=== PATIENT | female | born 1930 | race Caucasian/White ===

== ENCOUNTER → 2017-11-26 | Outpatient (CLI) | payer OTHER ==
[~2017-11-26] MED LIST: OPTIRAY 320 IV PRN
[2017-11-26 14:27] LABS: BLOOD UREA NITROGEN 22 mg/dl (7-18)
--- NOTE | 2017-11-26 14:50 | DIAGNOSTIC IMAGING REPORT ---
CT (CHEST) THORAX WITH CLINICAL HISTORY: 86 years-old Female presenting with J44.9 COPD. TECHNIQUE: Multidetector CT imaging of the chest was performed after the administration of intravenous contrast. IV contrast: 81 mL of Optiray 320. A dose lowering technique was used consistent with the principles of ALARA (as low as reasonably achievable). COMPARISON: None. CT DOSE (mGy.cm): The estimated cumulative dose is 333.61 mGycm. FINDINGS: Improvement Lead topogram: Unremarkable. On soft tissue windows, normal thyroid and thoracic inlet. Enlarged mediastinal lymph nodes. And index node in the sacral region measures 12 mm in the short axis (series 4 image 117). Lymph nodes noted in the precarinal, prevascular, and aortopulmonary window regions. Additionally, right hilar lymphadenopathy evident. Atherosclerosis of the aorta an the major branch vessels. Mild multichamber enlargement of the heart. Coronary artery calcification. No pericardial or pleural effusion. Upper abdomen normal. On lung windows, moderate apical predominant emphysema. Dependent changes likely atelectasis. Solid 4 mm pulmonary nodule at the right apex (series 4 image 81). Airways patent. No pneumothorax. On bone windows, osteopenia. IMPRESSION: 1. Mediastinal and right hilar lymphadenopathy. Although this may be reactive, this is suspicious based on size criteria. Further evaluation with bronchoscopic biopsy and/or PET CT to be considered as clinically appropriate. 2. 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 3. 4 mm solid right apical nodule. Follow-up per [employer] Society 2017 recommendations below. The report will be called/faxed according to standard departmental protocol. Please refer to below summary of Fleischner Society 2017 recommendations for follow-up of incidental CT nodules (H Trena et al. Guidelines for management of incidental pulmonary nodules detected on CT images: From the Fleischner Society 2017. Radiology 2017; 284: 228-243.) SOLID NODULES Single nodule; size < 6 mm * Low risk patients: No routine follow-up * High risk patients: Optional CT at 12 months Single nodule; size 6-8 mm * Low risk patients: CT at 6-12 months, then consider CT at 18-24 months * High risk patients: CT at 6-12 months, then at 18-24 months Single nodule; size > 8 mm * Either low or high risk patients: Considered CT at 3 months, PET/CT, or tissue sampling Multiple nodules; size < 6 mm * Low risk patients: No routine follow up * High risk patients: Optional CT at 12 months Multiple nodules; size 6-8 mm * Low risk patients: CT at 3-6 months, then consider CT at 18-24 months * High risk patients: CT at 3-6 months, then at 18-24 months Multiple nodules; size > 8 mm * Low risk patients: CT at 3-6 months, then consider at 18-24 months * High risk patients: CT at 3-6 months, then at 18-24 months SUBSOLID NODULES Single ground-glass nodule * Nodule size < 6 mm: No routine follow-up * Nodule size > or = 6 mm: CT at 6-12 months to confirm persistence, then CT every 2 years until 5 years Single part-solid nodule * Nodule size < 6 mm: No routine follow-up * Nodules size > or = 6 mm: CT at 3-6 months to confirm persistence. If unchanged and solid component remains < 6 mm, annual CT should be performed for 5 years Multiple nodules * Nodule size < 6 mm: CT at 3-6 months. If stable, consider CT at 2 and 4 years. * Nodules size > or = 6 mm: CT at 3-6 months. Subsequent management based on the most suspicious nodule(s) NOTE: 1) These guidelines apply to incidental nodules. These guidelines do NOT apply to patients younger than 35 years, immunocompromised patients, or patients with cancer. 2) Risk categories: * Low risk patients: Minimal or absent history of smoking and/or other known risk factors * High risk patients: History of smoking, exposure to other carcinogens, emphysema, fibrosis, upper lobe location, family history of lung cancer, etc. 3) If a nodule up to 8 mm is partly solid or is ground glass, further follow-up is required after 24 months to exclude possible slow growing adenocarcinoma. Electronically signed by: Mukesh Brunner M.D. 11/26/2017 2:48 PM Dictated Date/Time: 11/26/2017 2:40 PM
== END | disposition home or self-care (01) ==
LOC: C.CTS 13:46
PROVIDERS: ATTEND Internal Medicine Pulmonary Disease
DX: J44.9 Chronic obstructive pulmonary disease, unspecified (principal); R59.0 Localized enlarged lymph nodes; R91.1 Solitary pulmonary nodule

== ENCOUNTER 2021-05-09 07:50 | Inpatient (IN) ==
[2021-05-09] MEDS ORDERED: fentaNYL citrate 100 MCG/2 ML VIAL IV STA (07:57)
--- NOTE | 2021-05-09 08:01 | Emergency Department Note ---
Impression & Plan COPD exacerbation, Back pain, Ambulatory dysfunction ED Provider Note Name: PRASHANTH TRUJILLO Age: 89 Sex: F Arrives Via: Ambulance Informant: Patient, daughter ED Provider: Delon Davila MD Chief Complaint: back pain Impression: As Per Impressions above Medical Decision Making: Pleasant 89 yr old female with extensive PMH arrives for 2nd ED visit in last few days with worsening low back pain radiating down legs without improvement on baclofen as outpatient. She is quite weak with diffusely junkly lung sounds. CT lumbar/pelvis without evidence of acute fracture. Labs consistent with chronic disease. UA without clear infection. CXR mild congestions though I believe this is more consistent with copd exacerbation. Suspect worsening weakness/ambulatory disfuction worsening and respiratory status worsened. She is far too weak and deconditioned to go home and she/daughter on board with hospitalist kat. Held off on steroids/abx until hospitalist goldenal as patient stable. Prior Medical Record and Triage/Nursing Notes reviewed by Me Additional history obtained from chart, daughter, ems Differentials:Infection, dehydration, metabolic abnormality, hypo/hyperglycemia, electrolyte disturbance, anemia, hypoxia, cardiac sources, intracerebral event, toxicologic, neurologic, as well as other pathologies. Vital Signs: reviewed and remarkable for no significant abnormalities Interventions: See Below Labs:Reviewed and remarkable for no significant abnormalities Imaging:See Below Consults:Kedar mattsonist Plan: Disposition:Hospitalization. Condition: Good History of Present Illness:89-year-old female arrives for evaluation of low back pain. Patient notes she started having low back pain about 1 week ago. It has begun radiating to bilateral buttocks across her lower back. Primarily it radiates down her left buttock. She states it is too much pain to even walk at home. She lives with her grandson. Patient notes she is able to get up out of bed to get to the bathroom but is severely difficult for her. She does note some loss of bladder control but states this is not new for her. Patient denies any specific weakness of the legs but states it is just so painful to use them. She denies any falls, trauma, history of similar. She has had no fevers, chills, shortness of breath, chest pain, runny nose, headaches, abdominal pain, leg swelling, rashes, bleeding, bruising or other symptoms. She has had no diarrhea. She does note some urinary burning the last few days. She was seen at [facility] several days ago and states she was started on baclofen for her pain. She is unsure what exact work-up was done but states she was not given any answers as to what was going on. Patient states she cannot live at home like this due to inability to ambulate due to the amount of pain. ROS: See above HPI for pertinent positives & negatives. A total of 10 systems reviewed and were otherwise negative. Past Medical History:COPD, hypertension Past Surgical History:D&C, hysterectomy Family History:Denies past family medical history Social History:Patient is lives with her grandson and smokes 3 cigarettes a day Home Medications:See Below Allergies:Penicillin Vitals:Blood Pressure: 121/68, Pulse 76, RR 16, T 36.7C, O2 94% on RA Physical Exam: GENERAL: Patient is tired/uncomfortable appearing and in moderate distress. EYES: No scleral icterus, unremarkable pupils. ENT: Mucous membranes moist, no nasal congestion. NECK: No masses appreciated, nomeningismus, trachea is midline. RESPIRATORY: Junky lung sounds with mild wheezing. Mild dyspnea. Equal bilaterally. CARDIOVASCULAR: Regular rate and rhythm.No murmurs, rubs, gallops appreciated. GASTROINTESTINAL: Abdomen soft, non-tender, no peritonitis.Bowel sounds positive.No masses appreciated. BACK: No midline tenderness, no CVA tenderness EXTREMITIES: Normal motion all extremities, no cyanosis, no edema. NEUROLOGIC: Alert and oriented, no acute motor or sensory deficits, no focal weakness, cranial nerves grossly intact. SKIN: No rash, no jaundice, no diaphoresis. 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-89 ml/min COPD (chronic obstructive pulmonary disease) Essential tremor YUMIKO (generalized anxiety disorder) Hypertension Osteoporosis Raspy voice BASELINE PER PATIENT; DENIES ANY RECENT OR CURRENT ILLNESS Seasonal allergies Surgical History H/O: hysterectomy History of D&C History of surgery on wrist removal wrist ganglion Hx of bilateral cataract extraction Family History Daughter Family hx of colon cancer Social History Smoking Status: Current every day smoker Tobacco Type: Cigarettes Cigarettes Per Day: 6 CIGS/DAY; Second Hand Exposure: No; Do You Dip or Chew Tobacco: No; Tobacco Cessation Education Requested by Patient: No Hx Alcohol Use: No Hx Substance Use: No Preferred Language: Indonesian Communication Ability: Effective Mechatronics Technician Required: No Beliefs That Will Affect Care: None Current Living Situation: Family Current Living Situation Comment: Grandson lives with patient Other Information That Helps Us Care for You: No Feels Safe at Home: Yes Safety Concerns: Feels Safe At This Time Assistive Devices: Denture - Upper, Denture - Lower and Walker Allergies Allergies Allergy/AdvReac Type Severity Reaction Status Date / Time Penicillins Allergy Unknown SWELLING Verified 02/15/18 08:10 AND ITCHY Home Meds Home Medications Medication Instructions Recorded Confirmed metoprolol tartrate 50 mg tablet 50 mg PO BID 02/04/18 05/09/21 albuterol sulfate 2.5 mg INHALATION Q4H PRN 05/09/21 05/09/21 calcium carb-ergocalciferol (vit 1 tab PO DAILY 05/09/21 05/09/21 D2) 600 mg calcium-200 unit tablet fluticasone propionate 50 2 spray INTRANASAL DAILY PRN 05/09/21 05/09/21 mcg/actuation nasal spray,suspension hydralazine 10 mg tablet 10 mg PO TID 05/09/21 05/09/21 mometasone-formoterol HFA 200 2 puff INHALATION BID 05/09/21 05/09/21 mcg-5 mcg/actuation aerosol inhaler (Dulera) prednisone 5 mg tablet 5 mg PO QPM 05/09/21 05/09/21 vitamin A-vitamin C-vit E-min 1 tab PO DAILY 05/09/21 05/09/21 tablet Results & Data (ED) Vital Signs Vital Signs - 24 hr 05/09/21 08:49 05/09/21 08:51 05/09/21 09:01 Temperature 36.8 C Temperature Source Oral Pulse Rate 79 Pulse Rate [Finger] Respiratory Rate 22 Blood Pressure 226/152 H Blood Pressure [Left Arm] Blood Pressure Mean 176 Blood Pressure Mean [Left Arm] Pulse Oximetry 84 L 91 97 Oxygen Delivery Method Room Air Room Air Nasal Cannula Oxygen Flow Rate 2 Sepsis Recent Fever Within 48 Hours No Sepsis New/Unexplained Change in Mental Status N/A Sepsis Action Taken by Nursing No Action Required 05/09/21 09:14 Temperature Temperature Source Pulse Rate Pulse Rate [Finger] 73 Respiratory Rate 18 Blood Pressure Blood Pressure [Left Arm] 142/81 H Blood Pressure Mean Blood Pressure Mean [Left Arm] 101 Pulse Oximetry 97 Oxygen Delivery Method Nasal Cannula Oxygen Flow Rate 1 Sepsis Recent Fever Within 48 Hours Sepsis New/Unexplained Change in Mental Status Sepsis Action Taken by Nursing Laboratory Data Result diagrams: 05/11/21 06:20 05/11/21 06:20 Lab Results 05/09/21 05/09/21 05/09/21 Range/Units 08:08 08:08 08:15 WBC 8.00 (4.8-10.8) K/uL RBC 4.90 (4.2-5.4) M/uL Hgb 15.9 (12.0-16.0) g/dL Hct 48.0 H (37-47) % MCV 98.0 (80-100) fL MCH 32.4 (25-34) pg MCHC 33.1 (32-36) g/dL RDW Std Deviation 50.2 H (36.4-46.3) fL RDW Coeff of Alesia 14.1 (11.5-14.5) % Plt Count 328 (130-400) K/uL MPV 10.1 (7.4-10.4) fL Immature Gran % (Auto) 0.1 % Neut % (Auto) 71.5 % Lymph % (Auto) 19.6 % [place] % (Auto) 6.5 % Eos % (Auto) 1.9 % Baso % (Auto) 0.4 % Neut # (Auto) 5.72 (1.4-6.5) K/uL Lymph # (Auto) 1.57 (1.2-3.4) K/uL [place] # (Auto) 0.52 (0.11-0.59) K/uL Eos # (Auto) 0.15 (0-0.5) K/uL Baso # (Auto) 0.03 (0-0.2) K/uL Immature Gran # (Auto) 0.01 (0.00-0.02) K/uL Sodium (136-145) mmol/L Potassium (3.5-5.1) mmol/L Chloride (98-107) mmol/L Carbon Dioxide (21-32) mmol/L Anion Gap (3-11) BUN (6-23) mg/dl Creatinine (0.6-1.2) mg/dl Est Cr Clr Drug Dosing Est GFR ( Amer) ml/min Est GFR (Non-Af Amer) ml/min BUN/Creatinine Ratio (10-20) Glucose (70-99(Fasting)) mg/dl Calcium (8.5-10.1) mg/dl Magnesium (1.7-2.4) mg/dl Urine Color Yellow Urine Appearance Clear (Clear) Urine pH 7.5 (4.5-7.5) Ur Specific [place] 1.012 (1.000-1.030) Urine Protein 1+ H (Negative) Urine Glucose (UA) Negative (Negative) Urine Ketones 1+ H (Negative) Urine Blood Trace H (Negative) Urine Nitrite Negative (Negative) Urine Bilirubin Negative (Negative) Urine Urobilinogen Negative (Negative) Ur Leukocyte Esterase Negative (Negative) Urine WBC (Auto) 1-5 (0-5) /hpf Urine RBC (Auto) 5-10 H (0-4) /hpf U Hyaline Cast (Auto) 1-5 (0-5) /lpf U Epithel Cells (Auto) 10-20 H (0-5) /lpf Urine Bacteria (Auto) Negative (Negative) SARS-CoV-2, RNA, NAAT NEGATIVE (NEGATIVE) 05/09/21 Range/Units 08:15 WBC (4.8-10.8) K/uL RBC (4.2-5.4) M/uL Hgb (12.0-16.0) g/dL Hct (37-47) % MCV (80-100) fL MCH (25-34) pg MCHC (32-36) g/dL RDW Std Deviation (36.4-46.3) fL RDW Coeff of Alesia (11.5-14.5) % Plt Count (130-400) K/uL MPV (7.4-10.4) fL Immature Gran % (Auto) % Neut % (Auto) % Lymph % (Auto) % [place] % (Auto) % Eos % (Auto) % Baso % (Auto) % Neut # (Auto) (1.4-6.5) K/uL Lymph # (Auto) (1.2-3.4) K/uL [place] # (Auto) (0.11-0.59) K/uL Eos # (Auto) (0-0.5) K/uL Baso # (Auto) (0-0.2) K/uL Immature Gran # (Auto) (0.00-0.02) K/uL Sodium 140 (136-145) mmol/L Potassium 3.5 (3.5-5.1) mmol/L Chloride 100 (98-107) mmol/L Carbon Dioxide 29 (21-32) mmol/L Anion Gap 11 (3-11) BUN 18 (6-23) mg/dl Creatinine 0.77 (0.6-1.2) mg/dl Est Cr Clr Drug Dosing Not Reportable Est GFR ( Amer) 79.3 ml/min Est GFR (Non-Af Amer) 68.5 ml/min BUN/Creatinine Ratio 23.4 H (10-20) Glucose 116 H (70-99(Fasting)) mg/dl Calcium 9.7 (8.5-10.1) mg/dl Magnesium 2.0 (1.7-2.4) mg/dl Urine Color Urine Appearance (Clear) Urine pH (4.5-7.5) Ur Specific [place] (1.000-1.030) Urine Protein (Negative) Urine Glucose (UA) (Negative) Urine Ketones (Negative) Urine Blood (Negative) Urine Nitrite (Negative) Urine Bilirubin (Negative) Urine Urobilinogen (Negative) Ur Leukocyte Esterase (Negative) Urine WBC (Auto) (0-5) /hpf Urine RBC (Auto) (0-4) /hpf U Hyaline Cast (Auto) (0-5) /lpf U Epithel Cells (Auto) (0-5) /lpf Urine Bacteria (Auto) (Negative) SARS-CoV-2, RNA, NAAT (NEGATIVE) Administered Medications Acetaminophen (Acetaminophen 325 Mg Tab) 650 mg PO Q6H [facility] Stop: 06/08/21 11:14 Last Admin: 05/11/21 05:53 Dose: 650 mg Documented by: [id number] Admin: 05/10/21 23:35 Dose: 650 mg Documented by: [id number] Admin: 05/10/21 18:21 Dose: 650 mg Documented by: [id number] Admin: 05/10/21 12:31 Dose: 650 mg Documented by: [id number] Admin: 05/10/21 05:17 Dose: 650 mg Documented by: [id number] Admin: 05/09/21 23:59 Dose: 650 mg Documented by: [id number] Admin: 05/09/21 17:11 Dose: 650 mg Documented by: [id number] Admin: 05/09/21 13:11 Dose: 650 mg Documented by: [id number] Azithromycin (Azithromycin 250 Mg Tab) 500 mg PO DAILY [facility] Stop: 05/12/21 09:01 Last Admin: 05/11/21 08:53 Dose: 500 mg Documented by: [id number] Admin: 05/10/21 14:19 Dose: 500 mg Documented by: [id number] Fluticasone/Vilanterol (Fluticasone/Vilanterol 100/25mcg 14 Puffs/Inhaler) 1 puffs INH Q24H [facility]; Protocol Stop: 06/08/21 20:59 Last Admin: 05/10/21 22:21 Dose: 1 puffs Documented by: [id number] Admin: 05/09/21 20:01 Dose: 1 puffs Documented by: [id number] Hydralazine HCl (Hydralazine 10 Mg Tab) 10 mg PO TID [facility] Stop: 06/08/21 13:59 Last Admin: 05/11/21 08:54 Dose: 10 mg Documented by: [id number] Admin: 05/10/21 21:06 Dose: Not Given Documented by: [id number] Admin: 05/10/21 14:20 Dose: 10 mg Documented by: [id number] Admin: 05/10/21 09:33 Dose: 10 mg Documented by: [id number] Admin: 05/09/21 20:03 Dose: 10 mg Documented by: [id number] Admin: 05/09/21 13:04 Dose: 10 mg Documented by: [id number] Ceftriaxone Sodium 1,000 mg/ (Dextrose) 50 mls @ 100 mls/hr IV Q24H [facility]; Protocol Stop: 05/14/21 12:29 Last Infusion: 05/10/21 13:05 Dose: 0 mls/hr Documented by: [id number] Admin: 05/10/21 12:32 Dose: 100 mls/hr Documented by: [id number] Infusion: 05/09/21 13:12 Dose: 0 mls/hr Documented by: [id number] Admin: 05/09/21 12:29 Dose: 100 mls/hr Documented by: [id number] Heparin Sodium/Dextrose (Heparin Sodium/Dextrose) 25,000 units in 500 mls @ 15 mls/hr IV .Q24H [facility]; Protocol Stop: 06/09/21 22:44 Last Titration: 05/11/21 07:25 Dose: 750 units/hr, 15 mls/hr Documented by: [id number] Cosigned by: [id number] Admin: 05/10/21 23:29 Dose: 750 units/hr, 15 mls/hr Documented by: [id number] Cosigned by: [id number] Ipratropium Rhodell (Ipratropium Rhodell Neb Soln 0.02% 2.5 Ml Vial) 0.5 mg INH Q6R [facility] Stop: 06/10/21 00:59 Last Admin: 05/11/21 07:52 Dose: Not Given Documented by: [id number] Admin: 05/11/21 00:16 Dose: 0.5 mg Documented by: [id number] Levalbuterol HCl (Levalbuterol 1.25mg/0.5ml Neb) 1.25 mg INH Q6R [facility] Stop: 06/10/21 00:59 Last Admin: 05/11/21 07:52 Dose: Not Given Documented by: [id number] Admin: 05/11/21 00:16 Dose: 1.25 mg Documented by: [id number] Lidocaine (Lidocaine 5% 1 Patch) 1 patch TD QAM [facility] Stop: 06/08/21 11:14 Last Admin: 05/11/21 08:55 Dose: 1 patch Documented by: [id number] Admin: 05/10/21 09:36 Dose: 1 patch Documented by: [id number] Admin: 05/09/21 13:05 Dose: 1 patch Documented by: [id number] Metoprolol Tartrate (Metoprolol Tartrate 50 Mg Tab) 50 mg PO BID [facility] Stop: 06/08/21 11:48 Last Admin: 05/11/21 08:55 Dose: 50 mg Documented by: [id number] Admin: 05/10/21 21:06 Dose: 50 mg Documented by: [id number] Admin: 05/10/21 09:34 Dose: 50 mg Documented by: [id number] Admin: 05/09/21 20:02 Dose: 50 mg Documented by: [id number] Admin: 05/09/21 13:05 Dose: 50 mg Documented by: [id number] Miscellaneous (Remove Lidoderm Patch) 1 ea N/A DAILY@2100 [facility] Stop: 06/08/21 20:59 Last Admin: 05/10/21 21:06 Dose: 1 ea Documented by: [id number] Admin: 05/09/21 20:04 Dose: 1 ea Documented by: [id number] Prednisone (Prednisone 5 Mg Tab) 5 mg PO QPM [facility] Stop: 06/08/21 20:59 Last Admin: 05/09/21 20:02 Dose: 5 mg Documented by: [id number] Prednisone (Prednisone 20 Mg Tab) 40 mg PO DAILY [facility] Stop: 05/15/21 11:14 Last Admin: 05/11/21 08:56 Dose: 40 mg Documented by: [id number] Admin: 05/10/21 14:19 Dose: 40 mg Documented by: [id number] Discontinued Medications Albuterol (Albut/Ipratrop 3mg/0.5mg Neb 3 Ml Vial) 3 ml NEB QIDR [facility]; Protocol Stop: 06/08/21 14:59 Last Admin: 05/10/21 19:51 Dose: 3 ml Documented by: [id number] Admin: 05/10/21 14:32 Dose: 3 ml Documented by: [id number] Admin: 05/10/21 10:56 Dose: 3 ml Documented by: [id number] Admin: 05/10/21 07:40 Dose: 3 ml Documented by: [id number] Admin: 05/09/21 19:24 Dose: 3 ml Documented by: [id number] Admin: 05/09/21 15:57 Dose: 3 ml Documented by: [id number] Fentanyl Citrate (Fentanyl Citrate 100 Mcg/2 Ml Vial) 25 mcg IV NOW STA Stop: 05/09/21 07:58 Last Admin: 05/09/21 08:10 Dose: 25 mcg Documented by: [id number] Heparin Sodium (Porcine) (Heparin Sod 5,000 Unit/0.5 Ml Vial) 5,000 units SQ Q12 [facility] Stop: 06/08/21 20:59 Last Admin: 05/10/21 21:00 Dose: 5,000 units Documented by: [id number] Admin: 05/10/21 09:34 Dose: 5,000 units Documented by: [id number] Admin: 05/09/21 20:03 Dose: 5,000 units Documented by: [id number] Heparin Sodium/Dextrose (Heparin Iv Adult Wt-Based Low-Dose *No* Bolus Protocol) 1 ea IV Q30M [facility]; Protocol Stop: 05/10/21 22:29 Last Admin: 05/10/21 23:29 Dose: 1 ea Documented by: [id number] Sodium Chloride (Nss 1000ml) 1,000 mls @ 80 mls/hr IV .[id number] [facility] Stop: 05/10/21 23:29 Last Infusion: 05/10/21 23:33 Dose: 0 mls/hr Documented by: [id number] Admin: 05/10/21 11:30 Dose: 80 mls/hr Documented by: [id number] Heparin Sodium/Dextrose (Heparin Sodium/Dextrose) 25,000 units in 500 mls @ 0.02 mls/hr IV .Q24H [facility]; Protocol Stop: 06/10/21 00:21 Last Admin: 05/11/21 00:49 Dose: Not Given Documented by: [id number] Labetalol HCl (Labetalol Hcl Iv 5 Mg/Ml 20ml) 10 mg IV NOW STA Stop: 05/09/21 08:21 Last Admin: 05/09/21 08:37 Dose: 10 mg Documented by: [id number] Cosigned by: [id number] Ondansetron HCl (Ondansetron Inj 2 Mg/Ml 2 Ml Vial) 4 mg IV NOW STA Stop: 05/09/21 08:35 Last Admin: 05/09/21 08:37 Dose: 4 mg Documented by: [id number] Imaging Data Radiologist's Impression: Lumbar Spine CT 05/09/21 07:57 CT lumbar spine wo con HISTORY: 89 years-old Female low back pain in to left buttock acute low back pain without reported trauma COMPARISON: Chest CT 11/26/2017 TECHNIQUE: Multiple axial CT images of the lumbar spine were obtained without the use of IV contrast. A dose lowering technique was used consistent with the principals of SERG. FINDINGS: Partially imaged left basilar consolidation. Extensive atherosclerotic vascular disease with abdominal aortic tortuosity. 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 No evidence of aneurysm rupture. No adenopathy. Colonic diverticulosis. Moderate to marked paraspinal muscular atrophy. Demineralized appearance of the bones. Intervertebral disc spaces are generally well preserved with mild L1-L2 and posterior L5-S1 intervertebral disc space na rrowing. Mild multilevel spondylitic spurring with moderate to severe facet arthrosis. No acute fracture, subluxation or endplate erosion. The transverse processes appear intact. No paravertebral edema. Evaluation of the central canal and neuroforamina is better assessed by MRI. L1-L2: No significant central canal or neural foraminal narrowing. L2-L3: Small posterior annular disc bulge with ligamentum flavum thickening causes mild central canal stenosis. The neural foramina appear patent. L3-L4: Posterior annular disc bulge with spondylitic spurring, ligamentum flavum thickening and moderate to severe facet arthrosis. Moderate central canal stenosis with mild left neural foraminal narrowing. The right neuroforamen appears patent. L4-L5: Posterior annular disc bulge with spondylitic spurring, ligamentum flavum thickening with severe facet arthrosis. Moderate central canal stenosis. Bi lateral neuroforamina appear generally patent. L5-S1: Posterior annular disc bulge with spondylitic spurring, ligamentum flavum thickening and severe facet arthrosis. No significant central canal or neural foraminal narrowing. IMPRESSION: 1. No acute fracture or subluxation. 2. 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 Moderate central canal stenosis at L3-L4 and L4-L5. 3. Extensive atherosclerotic vascular disease with abdominal aortic tortuosity. 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 No evidence of aneurysm rupture. ACT 112: Negative or not required by law. The above report was generated using voice recognition software. It may contain grammatical, syntax or spelling errors. Electronically signed by: Chester Pandya M.D. 05/09/2021 8:[address] 05/09/21 08:20 CT OF THE HEAD WITHOUT CONTRAST CLINICAL HISTORY: Headache. COMPARISON STUDY: No previous studies for comparison. CT DOSE: TECHNIQUE: Helical axial images of the head were obtained without IV contrast. Automated exposure control was utilized for the study. A dose lowering technique was utilized adhering to the principles of ALARA. FINDINGS: No acute intracranial hemorrhage, midline shift or mass effect is present. White matter hypodensity suggests small vessel disease. The ventricular system is unremarkable. The basal cisterns are patent. No extra-axial collection s are present. There are no findings to suggest acute dural sinus thrombosis or acute territorial infarct. No significant calvarial abnormalities are present. Visualized portions of the sinuses and mastoid air cells are clear. IMPRESSION: No acute intracranial findings. ACT 112: Negative or not required by law. Electronically signed by: Norbert Richmond M.D. 05/09/2021 8:34 AM Discharge Plan Visit Data Chief Complaint: Back Injury/Pain Stated Complaint: low back pain ED Provider: Delon Davila Discharge Problem: COPD exacerbation, Back pain, Ambulatory dysfunction Patient Disposition: Admitted As Inpatient Discharge Instructions Interventions: ED Discharge Assessment Last Done: 05/09/21 11:17 Discharge Problem: Back pain Qualifiers: Back pain location: low back pain Chronicity: acute Back pain laterality: bilateral Sciatica presence: with sciatica Sciatica laterality: bilateral sciatica Qualified Code(s): M54.42 - Lumbago with sciatica, left side
[2021-05-09] MEDS ORDERED: LABETALOL HCL IV 5 MG/ML 20ML IV STA (08:20)
[2021-05-09 08:22] LABS: Appearance Urine Clear (Clear); Bacteria Urine Automated Negative (Negative); Bilirubin Urine Negative (Negative); Blood Urine Trace (Negative); Color Urine Yellow; Glucose Urine UA Negative (Negative); Ketones Urine 1+ (Negative); Leukocyte Esterase Urine Negative (Negative); Nitrite Urine Negative (Negative); Specific Gravity Urine 1.012 (1.000-1.030); Urobilinogen Urine Negative (Negative); pH Urine 7.5 (4.5-7.5)
[2021-05-09 08:33] LABS: Basophils # (auto) 0.03 K/uL (0-0.2); Basophils % (auto) 0.4 %; Eosinophils # (auto) 0.15 K/uL (0-0.5); Eosinophils % (auto) 1.9 %; Hemoglobin 15.9 g/dL (12.0-16.0); Immature Granulocytes # (auto) 0.01 K/uL (0.00-0.02); Immature Granulocytes % (auto) 0.1 %; Lymphocytes # (auto) 1.57 K/uL (1.2-3.4); Lymphocytes % (auto) 19.6 %; Mean Corpuscular Hemoglobin 32.4 pg (25-34); Mean Corpuscular Hgb Conc 33.1 g/dL (32-36); Mean Platelet Volume 10.1 fL (7.4-10.4); Monocytes # (auto) 0.52 K/uL (0.11-0.59); Monocytes % (auto) 6.5 %; Neutrophils # (auto) 5.72 K/uL (1.4-6.5); Neutrophils % (auto) 71.5 %; Platelet Count 328 K/uL (130-400); RDW Coefficient of Variation 14.1 % (11.5-14.5); RDW Standard Deviation 50.2 fL (36.4-46.3)
[2021-05-09] MEDS ORDERED: ONDANSETRON INJ 2 MG/ML 2 ML VIAL IV STA (08:34)
--- NOTE | 2021-05-09 08:35 | CT Scan Report ---
CT OF THE HEAD WITHOUT CONTRAST CLINICAL HISTORY: Headache. COMPARISON STUDY: No previous studies for comparison. CT DOSE: TECHNIQUE: Helical axial images of the head were obtained without IV contrast. Automated exposure con trol was utilized for the study. A dose lowering technique was utilized adhering to the principles o f ALARA. FINDINGS: No acute intracranial hemorrhage, midline shift or mass effect is present. White matter hyp odensity suggests small vessel disease. The ventricular system is unremarkable. The basal cisterns ar e patent. No extra-axial collections are present. There are no findings to suggest acute dural sinus thrombosis or acute territorial infarct. No significant calvarial abnormalities are present. Visualiz ed portions of the sinuses and mastoid air cells are clear. IMPRESSION: No acute intracranial findings. ACT 112: Negative or not required by law. Electronically signed by: Norbert Richmond M.D. 05/09/2021 8:34 AM
[2021-05-09 08:45] LABS: Protein Urine 1+ (Negative)
--- NOTE | 2021-05-09 08:45 | CT Scan Report ---
CT lumbar spine wo con HISTORY: 89 years-old Female low back pain in to left buttock acute low back pain without reported t rauma COMPARISON: Chest CT 11/26/2017 TECHNIQUE: Multiple axial CT images of the lumbar spine were obtained without the use of IV contrast. A dose lowering technique was used consistent with the principals of SERG. FINDINGS: Partially imaged left basilar consolidation. Extensive atherosclerotic vascular disease with abdomina l aortic tortuosity. There is bilobed fusiform aneurysmal dilation of the abdominal aorta measuring u p to 4.6 cm transversely. No evidence of aneurysm rupture. No adenopathy. Colonic diverticulosis. Mod erate to marked paraspinal muscular atrophy. Demineralized appearance of the bones. Intervertebral disc spaces are generally well preserved with m ild L1-L2 and posterior L5-S1 intervertebral disc space narrowing. Mild multilevel spondylitic spurri ng with moderate to severe facet arthrosis. No acute fracture, subluxation or endplate erosion. The t ransverse processes appear intact. No paravertebral edema. Evaluation of the central canal and neurof oramina is better assessed by MRI. L1-L2: No significant central canal or neural foraminal narrowing. L2-L3: Small posterior annular disc bulge with ligamentum flavum thickening causes mild central canal stenosis. The neural foramina appear patent. L3-L4: Posterior annular disc bulge with spondylitic spurring, ligamentum flavum thickening and moder ate to severe facet arthrosis. Moderate central canal stenosis with mild left neural foraminal narrow ing. The right neuroforamen appears patent. L4-L5: Posterior annular disc bulge with spondylitic spurring, ligamentum flavum thickening with kelly re facet arthrosis. Moderate central canal stenosis. Bilateral neuroforamina appear generally patent. L5-S1: Posterior annular disc bulge with spondylitic spurring, ligamentum flavum thickening and sever e facet arthrosis. No significant central canal or neural foraminal narrowing. IMPRESSION: 1. No acute fracture or subluxation. 2. 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 Moderate central canal stenosis at L3-L4 and L4-L5. 3. Extensive atherosclerotic vascular disease with abdominal aortic tortuosity. Bilobed fusiform aneu rysmal dilation of the infrarenal abdominal aorta measures up to 4.6 cm. No evidence of aneurysm rupt ure. ACT 112: Negative or not required by law. The above report was generated using voice recognition software. It may contain grammatical, syntax o r spelling errors. Electronically signed by: Chester Pandya M.D. 05/09/2021 8:43 AM
[2021-05-09 08:55] LABS: Anion Gap 11 (3-11); BUN Creatinine Ratio 23.4 (10-20); Blood Urea Nitrogen 18 mg/dl (6-23); Calcium 9.7 mg/dl (8.5-10.1); Carbon Dioxide 29 mmol/L (21-32); Chloride 100 mmol/L (98-107); Est GFR (African American) 79.3 ml/min; Est GFR (Non-African American) 68.5 ml/min; Glucose 116 mg/dl (70-99(Fasting)); Potassium 3.5 mmol/L (3.5-5.1); Sodium 140 mmol/L (136-145)
--- NOTE | 2021-05-09 09:52 | XRay Report ---
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 Emphysema with chronic fibrosis. There is a linear 1.2 cm left basilar densities suggestive of atelectasis/scarring. There is an ill-defined 1. 8 cm focal nodular opacity of the right midlung. Chronic pleural thickening of the lung apices. No pn eumothorax, large pleural effusion or overt pulmonary edema. Degenerative changes of the shoulders an d spine. Healed chronic left proximal humeral fracture deformity. IMPRESSION: 1. Emphysema with chronic interstitial coarsening. 2. Ill-defined 1.8 cm nodular opacity of the right midlung appears new from the 2018 comparison. Subt le area of pneumonia, pulmonary nodule or summation density considered. 1-2 month follow-up chest rad iograph recommended. ACT 112: Negative or not required by law. The above report was generated using voice recognition software. It may contain grammatical, syntax o r spelling errors. Electronically signed by: Chester Pandya M.D. 05/09/2021 9:51 AM
--- NOTE | 2021-05-09 10:06 | History & Physical Report ---
Date of Service May 09, 2021 Assessment & Plan (1) Back pain: Plan: Gradually worsening over the past ten days. Likely due to age-related degenerative changes. No specific injury or inciting event. - Admit for pain control, further evaluation - PT/OT evals - pt may need rehab at discharge. She is agreeable to this possibility. - Scheduled acetaminophen, lidocaine patch - PRN oxycodone and cyclobenzaprine - Fall precautions - Check blood cultures (2) Ambulatory dysfunction: Plan: See plan for #1 (3) UTI symptoms: Plan: - Start empiric Rocephin (pt has previously tolerated cephalosporins without issue) - Check urine culture (4) COPD exacerbation: Plan: - DuoNeb QID scheduled - will change to prn once clinical improving - Continue O2 for now - wean as tolerated, not on at baseline - Continue maintenance inhaler and prednisone. May need to increase steroids if not improving with nebs (5) Abnormal chest x-ray: Plan: New ill-defined 1.8 cm density - will need outpatient f/u in 1-2 months (6) Hypertension: Plan: - Continue home meds - metoprolol and hydralazine (7) CKD (chronic kidney disease) stage 2, GFR 60-89 ml/min: Plan: Appears to be at baseline renal function. Avoid NSAIDs. Plan: Pt seen and reviewed with collaborating physician, Dr. Osorio. Plan of care discussed and as outlined above. Code Status: DNR/DNI DVT Prophylaxis: SCDs, subQ heparin Keri Sweet PA-C History of Present Illness Chief Complaint: Back Pain, unable to walk Primary Care Provider: Carlos Bowser MD This is an 89 y/o female with a PMH of COPD, HTN, YUMIKO, CKD3a, osteoporosis, and essential tremor who presents to the ED today with progressive back pain over the past ten days resulting in an inability to ambulate and care for herself at home. Pt reports that she had an episode of low back pain about a month ago that lasted a few days then went away without specific intervention. She was doing well until about ten days ago when she had the gradual onset of bilateral lumbar pain that radiates intermittently into her buttocks and down the back of both of her legs to her toes. She has noted some decreased sensation in the right lower leg. Denies bowel or bladder incontinence. She reports that the pain is now so severe that she cannot ambulate adequately at home and her family is unable to care for her. She was seen at the ED in [place] two days ago but reports she was told it was a "muscle strain" and she was given muscle relaxers to try that have not helped. At home, she was taking Tylenol for the pain, which helped initially but is no longer effective. She is not eating much due to the pain. The pain may wake her from sleep at night. She reports occasional similar back pain previously but never this severe or this persistent. No prior back surgeries. Pt also notes chronic issues with urinary frequency, but this is unchanged from usual. Denies fevers, chills, hematuria. Has reported some intermittent dysuria over past week. Allergies Allergy/AdvReac Type Severity Reaction Status Date / Time Penicillins Allergy Unknown SWELLING Verified 02/15/18 08:10 AND ITCHY Home Medications Medication Instructions Recorded Confirmed Type metoprolol tartrate 50 mg tablet 50 mg PO BID 02/04/18 05/09/21 History albuterol sulfate 2.5 mg INHALATION Q4H PRN 05/09/21 05/09/21 History calcium carb-ergocalciferol (vit 1 tab PO DAILY 05/09/21 05/09/21 History D2) 600 mg calcium-200 unit tablet fluticasone propionate 50 2 spray INTRANASAL DAILY PRN 05/09/21 05/09/21 History mcg/actuation nasal spray,suspension hydralazine 10 mg tablet 10 mg PO TID 05/09/21 05/09/21 History mometasone-formoterol HFA 200 2 puff INHALATION BID 05/09/21 05/09/21 History mcg-5 mcg/actuation aerosol inhaler (Dulera) prednisone 5 mg tablet 5 mg PO QPM 05/09/21 05/09/21 History vitamin A-vitamin C-vit E-min 1 tab PO DAILY 05/09/21 05/09/21 History tablet Past Med/Surg History Medical History CKD (chronic kidney disease) stage 2, GFR 60-89 ml/min COPD (chronic obstructive pulmonary disease) Essential tremor YUMIKO (generalized anxiety disorder) Hypertension Osteoporosis Raspy voice BASELINE PER PATIENT; DENIES ANY RECENT OR CURRENT ILLNESS Seasonal allergies Surgical History H/O: hysterectomy History of D&C History of surgery on wrist removal wrist ganglion Hx of bilateral cataract extraction Family History Daughter Family hx of colon cancer Social History Smoking Status: Current every day smoker Tobacco Type: Cigarettes Cigarettes Per Day: 6 CIGS/DAY; Second Hand Exposure: No; Do You Dip or Chew Tobacco: No; Tobacco Cessation Education Requested by Patient: No Hx Alcohol Use: No Hx Substance Use: No Preferred Language: Nicaraguan Communication Ability: Effective Numerical Control Lathe Operator Required: No Beliefs That Will Affect Care: None Current Living Situation: Family Current Living Situation Comment: Grandson lives with patient Other Information That Helps Us Care for You: No Feels Safe at Home: Yes Safety Concerns: Feels Safe At This Time Assistive Devices: Walker Review of Systems Review of Systems: All systems reviewed & are unremarkable except as noted in HPI & below Constitutional: + fatigue and + anorexia; no fever, no chills and no sweats Eyes: no diplopia Ear, Nose, Mouth, Throat: no nasal congestion, no nasal discharge and no sore throat Respiratory: no cough, no dyspnea on exertion and no wheezing Cardiovascular: no chest pain, no palpitations, no syncope and no edema Gastrointestinal: no abdominal pain, no nausea, no vomiting, no change in bowel habits and no diarrhea/loose stools Genitourinary: + urinary frequency; no dysuria and no hematuria Musculoskeletal: + back pain and + radicular pain; no neck pain and no joint pain Integumentary: no rash and no unusual bruising Neurologic: + gait abnormality and + unsteadiness; no dizziness and no headache(s) Psychiatric: + anxiety; no depression Physical Exam Constitutional: + frail appearing; no acute distress Eyes: PERRL, conjunctivae normal, anicteric sclerae Neck: trachea midline Respiratory: no respiratory distress Auscultation: + wheezes (throughout); no rales and no rhonchi coarse BS bilaterlly. +nasal canula in place - O2 at 2L Cardiovascular: Rate/Rhythm: regular rate and regular rhythm Vessels: dorsalis pedis pulses present and radial pulses present Extremities: normal capillary refill; no pedal edema Gastrointestinal (Abdomen): Inspection/Auscultation: normal bowel sounds; abdomen not distended Percussion/Palpation: abdomen soft; abdomen nontender Musculoskeletal: Head/Neck/Chest: normocephalic, head atraumatic and neck supple Spine: + paraspinal tenderness (lumbar) No spinous process tenderness Strength Testing: Dorsiflexion - 5/5 bilaterally and equal Plantar flexion - 5/5 bilaterally and equal Hip flexion/extension - 3/5 on right, 4/5 on left Skin: no rashes and no jaundice Neurologic: moves all extremities; no focal motor deficits slightly dimin ished sensation to light touch right foot and ankle area Psychiatric: A+Ox3, euthymic affect Results & Data Results & Data ([facility]) Vital Signs (Past 12 Hours) Vital Signs Temp Pulse Pulse Resp BP BP Pulse Ox 05/09/21 09:58 90 05/09/21 09:14 73 18 142/81 H 97 05/09/21 09:01 97 05/09/21 08:51 36.8 C 79 22 226/152 H 91 05/09/21 08:49 84 L Laboratory Results Laboratory Results - last 24 hr 05/09/21 05/09/21 05/09/21 08:08 08:08 08:15 WBC 8.00 RBC 4.90 Hgb 15.9 Hct 48.0 H MCV 98.0 MCH 32.4 MCHC 33.1 RDW Std Deviation 50.2 H RDW Coeff of Alesia 14.1 Plt Count 328 MPV 10.1 Immature Gran % (Auto) 0.1 Neut % (Auto) 71.5 Lymph % (Auto) 19.6 [place] % (Auto) 6.5 Eos % (Auto) 1.9 Baso % (Auto) 0.4 Neut # (Auto) 5.72 Lymph # (Auto) 1.57 [place] # (Auto) 0.52 Eos # (Auto) 0.15 Baso # (Auto) 0.03 Immature Gran # (Auto) 0.01 Sodium Potassium Chloride Carbon Dioxide Anion Gap BUN Creatinine Est Cr Clr Drug Dosing Est GFR ( Amer) Est GFR (Non-Af Amer) BUN/Creatinine Ratio Glucose Calcium Magnesium Urine Color Yellow Urine Appearance Clear Urine pH 7.5 Ur Specific [place] 1.012 Urine Protein 1+ H Urine Glucose (UA) Negative Urine Ketones 1+ H Urine Blood Trace H Urine Nitrite Negative Urine Bilirubin Negative Urine Urobilinogen Negative Ur Leukocyte Esterase Negative Urine WBC (Auto) 1-5 Urine RBC (Auto) 5-10 H U Hyaline Cast (Auto) 1-5 U Epithel Cells (Auto) 10-20 H Urine Bacteria (Auto) Negative SARS-CoV-2, RNA, NAAT NEGATIVE 05/09/21 08:15 WBC RBC Hgb Hct MCV MCH MCHC RDW Std Deviation RDW Coeff of [place]les[place] Plt Count MPV Immature Gran % (Auto) Neut % (Auto) Lymph % (Auto) [place] % (Auto) Eos % (Auto) Baso % (Auto) Neut # (Auto) Lymph # (Auto) [place] # (Auto) Eos # (Auto) Baso # (Auto) Immature Gran # (Auto) Sodium 140 Potassium 3.5 Chloride 100 Carbon Dioxide 29 Anion Gap 11 BUN 18 Creatinine 0.77 Est Cr Clr Drug Dosing Not Reportable Est GFR ( Amer) 79.3 Est GFR (Non-Af Amer) 68.5 BUN/Creatinine Ratio 23.4 H Glucose 116 H Calcium 9.7 Magnesium 2.0 Urine Color Urine Appearance Urine pH Ur Specific [place] Urine Protein Urine Glucose (UA) Urine Ketones Urine Blood Urine Nitrite Urine Bilirubin Urine Urobilinogen Ur Leukocyte Esterase Urine WBC (Auto) Urine RBC (Auto) U Hyaline Cast (Auto) U Epithel Cells (Auto) Urine Bacteria (Auto) SARS-CoV-2, RNA, NAAT Diagnostic Findings Chest X-ray 05/09/21 - IMPRESSION: 1. Emphysema with chronic interstitial coarsening. 2. Ill-defined 1.8 cm nodular opacity of the right midlung appears new from the 2018 comparison. Subtle area of pneumonia, pulmonary nodule or summation density considered. 1-2 month follow-up chest radiograph recommended. CT Head 05/09/21 - IMPRESSION: No acute intracranial findings. CT Lumbar Spine 05/09/21 - IMPRESSION: 1. No acute fracture or subluxation. 2. 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 Moderate central canal stenosis at L3-L4 and L4-L5. 3. Extensive atherosclerotic vascular disease with abdominal aortic tortuosity. 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 No evidence of aneurysm rupture. Medications Administered Discontinued Medications Fentanyl Citrate (Fentanyl Citrate 100 Mcg/2 Ml Vial) 25 mcg IV NOW STA Stop: 05/09/21 07:58 Last Admin: 05/09/21 08:10 Dose: 25 mcg Documented by: [id number] Labetalol HCl (Labetalol Hcl Iv 5 Mg/Ml 20ml) 10 mg IV NOW STA Stop: 05/09/21 08:21 Last Admin: 05/09/21 08:37 Dose: 10 mg Documented by: [id number] Cosigned by: [id number] Ondansetron HCl (Ondansetron Inj 2 Mg/Ml 2 Ml Vial) 4 mg IV NOW STA Stop: 05/09/21 08:35 Last Admin: 05/09/21 08:37 Dose: 4 mg Documented by: [id number] Supervising Physician Co-Signing Physician Notes 89 y/o female with a PMH of COPD, HTN, YUMIKO, CKD3a, osteoporosis, and essential tremor presented to our ED 05/09 with complaint of progressive lower back pain since last 7 to 10 days. Per patient, she has lower back pain 10/10 with movement, 8/10 with rest, radiating bilaterally down to thighs/knees, not associated with acute loss in bowel or bladder continence [he has baseline incontinence with bowel and bladder], no preceding fever, no association with tenderness along the spine upon examination, no history of blood clot/cancer in the past. Family history of colon cancer in daughter and stomach cancer in sister. Personal history of smoking since 1940s, down to 3 cigarettes a day currently, denied nicotine patch. Patient reports some improvement in her back pain with Tylenol. Patient does also complain of having burning while passing urine since last 7 to 10 days. A&P: #. UTI #. Low back pain --> secondary to degenerative changes with spondylitic spurring and facet arthrosis. Moderate central canal stenosis noted at L3-L4 and L4-L5 level. #. Mild COPD exacerbation --> patient does not complain any symptoms but she has bilateral wheezing on exam. #. Abnormal CXR: 1.8 cm ill-defined nodular opacity of the right midlung which is new from 2018 comparison, follow-up chest radiograph in 1 to 2-month recommended. CT lumbar spine, CT head and chest x-ray reviewed personally. Send urine culture, blood culture, Tylenol scheduled, small dose of oxycodone as needed, at muscle relaxant. PT/OT. Rocephin for UTI. Scheduled nebs for mild COPD exacerbation, consider steroid if it does not improve clinically. Resume home meds as and when appropriate. Upon examination: GENERAL: Alert and oriented x3. NAD, on 2L HEENT: No pallor, no icterus. Pupils equal, round and reactive to light. Oral mucosa moist. NECK: No JVD, no neck masses. HEART: S1 and S2 heard. Regular rate and rhythm. No murmur, no gallop. RESPIRATORY SYSTEM: Normal AP diameter. No accessory muscle use. Occasional crackles and bilateral wheezing noted. ABDOMEN: Soft, bowel sounds present, nontender, no distention. CENTRAL NERVOUS SYSTEM: No facial droop. Speech is clear. Obeys simple commands. Moves extremities. EXTREMITIES: No edema, no erythema seen. Back examination performed, no tenderness noted. Thoracic scoliosis noted. I have seen and examined the patient and have discussed the case with the provider above. I agree with the assessment and plan as stated.
[2021-05-09] MEDS ORDERED: CYCLOBENZAPRINE HCL 5 MG TAB PO PRN (11:11)
[2021-05-09] MEDS ORDERED: oxyCODONE HCL IR 5 MG TAB (IMMEDIATE RELEASE) PO PRN (11:11)
[2021-05-09] MEDS: cefTRIAXone SODIUM 1,000 MG in DEXTROSE 5% 50 ML IV SCH (12:29)
[2021-05-09] MEDS: hydrALAZINE 10 MG TAB PO SCH ×2 (13:04→20:03)
[2021-05-09] MEDS: LIDOCAINE 5% 1 PATCH TD SCH (13:05)
[2021-05-09] MEDS: METOPROLOL TARTRATE 50 MG TAB PO SCH ×2 (13:05→20:02)
[2021-05-09] MEDS: ACETAMINOPHEN 325 MG TAB PO SCH ×3 (13:11→23:59)
[2021-05-09] MEDS: ALBUT/IPRATROP 3MG/0.5MG NEB 3 ML VIAL NEB SCH ×2 (15:57→19:24)
[2021-05-09] MEDS: FLUTICASONE/VILANTEROL 100/25MCG 14 PUFFS/INHALER INH SCH (20:01)
[2021-05-09] MEDS: HEPARIN SOD 5,000 UNIT/0.5 ML VIAL SQ SCH (20:03)
[2021-05-09] MEDS ORDERED: predniSONE 5 MG TAB PO SCH (21:00)
[2021-05-10] MEDS: ACETAMINOPHEN 325 MG TAB PO SCH ×4 (05:17→23:35)
[2021-05-10 06:35] LABS: Hematocrit (blood only) 39.7 % (37-47); Hemoglobin 12.8 g/dL (12.0-16.0); Mean Corpuscular Hemoglobin 31.9 pg (25-34); Mean Corpuscular Hgb Conc 32.2 g/dL (32-36); Platelet Count 281 K/uL (130-400); RDW Coefficient of Variation 14.3 % (11.5-14.5); RDW Standard Deviation 51.5 fL (36.4-46.3); Red Blood Count 4.01 M/uL (4.2-5.4)
[2021-05-10 07:11] LABS: BUN Creatinine Ratio 19.9 (10-20); Calcium 8.5 mg/dl (8.5-10.1); Creatinine Clr Calc Pharmacy 21.1 ml/min; Est GFR (African American) 29.2 ml/min; Est GFR (Non-African American) 25.2 ml/min; Phosphorus 5.9 mg/dl (2.5-4.9); Potassium 4.1 mmol/L (3.5-5.1)
[2021-05-10] MEDS: ALBUT/IPRATROP 3MG/0.5MG NEB 3 ML VIAL NEB SCH ×4 (07:40→19:51)
[2021-05-10] MEDS: hydrALAZINE 10 MG TAB PO SCH ×3 (09:33→21:06)
[2021-05-10] MEDS: HEPARIN SOD 5,000 UNIT/0.5 ML VIAL SQ SCH ×2 (09:34→21:00)
[2021-05-10] MEDS: METOPROLOL TARTRATE 50 MG TAB PO SCH ×2 (09:34→21:06)
[2021-05-10] MEDS: LIDOCAINE 5% 1 PATCH TD SCH (09:36)
--- NOTE | 2021-05-10 10:59 | Hospitalist Progress Note ---
Date of Service May 10, 2021 Assessment & Plan (1) Back pain: Plan: This is a 89-year-old female who has significant past medical history of HTN, COPD, CKD stage III Baseline creatinine 0.9-1.1, osteoporosis, tobacco abuse, YUMIKO, essential tremor who was admitted to ED on 05/09/2021 secondary to persistent back pain and ambulatory dysfunction. Lumbar Spine CT: Discogenic degeneration with spondylitic spurring and facet arthrosis as detailed above. Moderate central canal stenosis at L3-L4 and L4-L5. Gradually worsening over the past ten days. Likely due to age-related degenerative changes. No specific injury or inciting event. admitted to med/surg PT/OT - pt may need rehab but currently declining this Scheduled acetaminophen, lidocaine patch PRN oxycodone and cyclobenzaprine Fall precautions Check blood cultures (2) Ambulatory dysfunction: Plan: PT/OT consulted (3) UTI symptoms: Plan: Currently on empiric Rocephin Initial UA looks benign, will await cultures Pt denies UTI sx today (4) Hypoxia: (5) COPD exacerbation: Plan: DuoNeb QID scheduled - will change to prn once clinical improving Continue O2 for now - wean as tolerated, not on at baseline Hold chronic prednisone Place on Prednisone 40mg daily x 5 days Start Azithromycin 500mg po x 3 days, also on Rocephin for ? UTI (6) Acute renal failure superimposed on stage 3 chronic kidney disease: Plan: Baseline renal function 0.9-1.1 BUN/creatinine elevated today to 1.76 Give gentle 1 L IV fluid Avoid nephrotoxic agents, does not appear to have received nephrotoxic agents in the past 24 hours Monitor (7) Abnormal chest x-ray: Plan: New ill-defined 1.8 cm density - will need outpatient f/u in 1-2 months obtain procalcitonin to r/o infectious process Azithromycin ordered for COPD exac, procal WNL (8) Hypertension: Plan: Continue home meds - metoprolol and hydralazine Bp controlled (9) Aortic aneurysm: Plan: Discovered on Lumbar CT Extensive atherosclerotic vascular disease with abdominal aortic tortuosity. 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 No evidence of aneurysm rupture. Was never aware of this in past Pt will need follow up with PCP upon discarge Plan: DVT ppx: SQ Heparin Dispo: Pending, possibly to rehab if agreeable or home with home health and services PCP: Dr. Bowser, patient does follow with [facility] at home DNR/DNI Patient was seen and examined in collaboration with, Dr. Darden, please see addendum The chart was completed utilizing [employer] Speech voice recognition software. Grammatical errors, random word insertions, pronoun errors, and incomplete sentences are an occasional consequence of this system due to software limitations, ambient noise, and hardware issues. Any formal questions or concerns about the content, text, or information contained within the body of this dictation should be directly addressed to the provider for clarification. Admission and Anticipated Discharge Date Admission Date: May 09, 2021 Supervising Physician Co-Signing Physician Notes Patient seen and examined Reports cough. Exam notable for expiratory wheeze. Currently on NC 2l/min. Was not on oxygen at home. Labs show increased Cr today CXR on admission - Ill-defined 1.8 cm nodular opacity of the right midlung appears new from the 2018 comparison. Subtle area of pneumonia, pulmonary nodule or summation density considered. 1-2 month follow-up chest radiograph recommended. Patient appear to have MANUEL. No obvious GI fluid losses. Reports poor intake at home this past few days. Will give IVF and monitor Give prednisone 40mg daily for 4 days for COPD ex and then back to home dose of 5mg chronic prednisone Agree with findings and plans as detailed by Jessica Hurley PA-C Subjective Patient was seen and examined in room 306. Follow-up spinal stenosis, COPD exacerbation, possible UTI. Patient states she feels okay this morning. Denies any shortness of breath. Complains of occasional productive cough. She does have chronic cough but states it, "comes and goes." Denies fever, chills, sweats, chest pain, shortness of breath at rest, nausea, vomiting, abdominal pain, diarrhea, dysuria, increased urgency or frequency with urination, melena or hematochezia. She does not wear oxygen at home. She lives at home with her grandson. Occasionally she does use a cane. She is able to do ADLs and IADLs of independently. She does not drive. She continues to smoke 3 cigarettes a day. States she is, "working on it." Declines nicotine patch. Feels overall has a good appetite. Review of Systems Review of Systems: All systems reviewed & are unremarkable except as noted in HPI & below Physical Exam Physical Exam: Gen: Thin, elderly, female, sitting up in bed, NAD, A&O x3, answers questions appropriately, no dyspnea with conversation HEENT: Normocephalic, atraumatic, conjunctivae moist, sclerae anicteric, mucous membranes moist. Lung: On 2 L via O2 NC ,clear to Auscultation bilaterally with decreased breath sounds at bases, scattered expiratory wheeze, no rales or rhonchi Heart: Regular rate, regular rhythm, occassional ectopic beat, no murmurs, rubs, or gallops Abdomen: Soft, NT, ND +BS x 4 Extremities: No edema Skin: Warm, no rash, negative turgor. Results & Data Results & Data ([facility]) Vital Signs (Past 12 Hours) Vital Signs Temp Pulse Resp BP Pulse Ox 05/10/21 07:41 60 18 95 05/10/21 07:35 36.7 C 61 16 128/69 95 Laboratory Results Short CBC 05/10/21 Range/Units 05:38 WBC 6.70 (4.8-10.8) K/uL Hgb 12.8 D (12.0-16.0) g/dL Hct 39.7 (37-47) % Plt Count 281 (130-400) K/uL BMP 05/10/21 05:38 Sodium 138 Potassium 4.1 Chloride 102 Carbon Dioxide 27 BUN 35 H Creatinine 1.76 H D Glucose 114 H Calcium 8.5 Medications Administered Current Inpatient Medications Acetaminophen (Acetaminophen 325 Mg Tab) 650 mg PO Q6H [facility] Stop: 06/08/21 11:14 Last Admin: 05/10/21 05:17 Dose: 650 mg Documented by: Albuterol (Albut/Ipratrop 3mg/0.5mg Neb 3 Ml Vial) 3 ml NEB QIDR [facility]; Protocol Stop: 06/08/21 14:59 Last Admin: 05/10/21 07:40 Dose: 3 ml Documented by: Cyclobenzaprine HCl (Cyclobenzaprine Hcl 5 Mg Tab) 5 mg PO BID PRN PRN Reason: Muscle Spasm Stop: 06/08/21 11:10 Fluticasone/Vilanterol (Fluticasone/Vilanterol 100/25mcg 14 Puffs/Inhaler) 1 puffs INH Q24H [facility]; Protocol Stop: 06/08/21 20:59 Last Admin: 05/09/21 20:01 Dose: 1 puffs Documented by: Heparin Sodium (Porcine) (Heparin Sod 5,000 Unit/0.5 Ml Vial) 5,000 units SQ Q12 [facility] Stop: 06/08/21 20:59 Last Admin: 05/10/21 09:34 Dose: 5,000 units Documented by: Hydralazine HCl (Hydralazine 10 Mg Tab) 10 mg PO TID [facility] Stop: 06/08/21 13:59 Last Admin: 05/10/21 09:33 Dose: 10 mg Documented by: Ceftriaxone Sodium 1,000 mg/ (Dextrose) 50 mls @ 100 mls/hr IV Q24H [facility]; Protocol Stop: 05/14/21 12:29 Last Infusion: 05/09/21 13:12 Dose: Infused Documented by: Sodium Chloride (Nss 1000ml) 1,000 mls @ 80 mls/hr IV .[id number] [facility] Stop: 05/10/21 23:29 Lidocaine (Lidocaine 5% 1 Patch) 1 patch TD QAM [facility] Stop: 06/08/21 11:14 Last Admin: 05/10/21 09:36 Dose: 1 patch Documented by: Metoprolol Tartrate (Metoprolol Tartrate 50 Mg Tab) 50 mg PO BID [facility] Stop: 06/08/21 11:48 Last Admin: 05/10/21 09:34 Dose: 50 mg Documented by: Miscellaneous (Remove Lidoderm Patch) 1 ea N/A DAILY@2100 [facility] Stop: 06/08/21 20:59 Last Admin: 05/09/21 20:04 Dose: 1 ea Documented by: Oxycodone HCl (Oxycodone Hcl Ir 5 Mg Tab (Immediate Release)) 5 mg PO Q12 PRN PRN Reason: Pain Stop: 05/23/21 11:10 Prednisone (Prednisone 5 Mg Tab) 5 mg PO QPM [facility] Stop: 06/08/21 20:59 Last Admin: 05/09/21 20:02 Dose: 5 mg Documented by: ECG Rate (beats per minute): 70 Rhythm: normal sinus Findings: + PAC
[2021-05-10] MEDS ORDERED: SODIUM CHLORIDE 0.9% 1000ML 1,000 ML IV SCH (11:00)
--- NOTE | 2021-05-10 12:23 | Electrocardiogram Report ---
Test Reason : Blood Pressure : / mmHG Vent. Rate : 070 BPM Atrial Rate : 070 BPM P-R Int : 174 ms QRS Dur : 084 ms QT Int : 402 ms P-R-T Axes : 064 027 073 degrees QTc Int : 434 ms Sinus rhythm with Premature atrial complexes Nonspecific T wave abnormality Abnormal ECG No previous ECGs available Confirmed by Jordy Dove ([id number]) on 05/10/2021 12:23:08 PM Referred By: REFERRED SELF Confirmed By:Aron Dove
[2021-05-10] MEDS: cefTRIAXone SODIUM 1,000 MG in DEXTROSE 5% 50 ML IV SCH (12:32)
[2021-05-10] MEDS: AZITHROMYCIN 250 MG TAB PO SCH (14:19)
[2021-05-10] MEDS: predniSONE 20 MG TAB PO SCH (14:19)
[2021-05-10] MEDS: FLUTICASONE/VILANTEROL 100/25MCG 14 PUFFS/INHALER INH SCH (22:21)
[2021-05-10] MEDS ORDERED: Heparin IV Adult Wt-Based Low-Dose *NO* Bolus Protocol IV SCH (22:28)
[2021-05-10] MEDS ORDERED: Heparin Adult LOW DOSE Wt-Based Dextrose 5% 25,000 units/500 mL IV SCH (22:45)
[2021-05-10 23:16] LABS: Hemoglobin 13.3 g/dL (12.0-16.0); Immature Granulocytes # (auto) 0.01 K/uL (0.00-0.02); Immature Granulocytes % (auto) 0.1 %; Lymphocytes # (auto) 0.73 K/uL (1.2-3.4); Lymphocytes % (auto) 10.7 %; Mean Corpuscular Volume 98.6 fL (80-100); Mean Platelet Volume 10.2 fL (7.4-10.4); Monocytes # (auto) 0.15 K/uL (0.11-0.59); Monocytes % (auto) 2.2 %; Neutrophils # (auto) 5.95 K/uL (1.4-6.5); Platelet Count 309 K/uL (130-400); RDW Coefficient of Variation 14.3 % (11.5-14.5); RDW Standard Deviation 50.9 fL (36.4-46.3); Red Blood Count 4.16 M/uL (4.2-5.4); White Blood Count 6.84 K/uL (4.8-10.8)
[2021-05-10 23:26] LABS: Partial Thromboplastin Ratio 1.2; Partial Thromboplastin Time 31.8 Seconds (21.0-31.0); Prothrombin Time 10.1 Seconds (9.0-12.0)
[2021-05-10 23:27] LABS: Mean Corpuscular Hgb Conc 32.4 g/dL (32-36)
[2021-05-11] MEDS: LEVALBUTEROL 1.25MG/0.5ML NEB INH SCH ×4 (00:16→19:24)
[2021-05-11] MEDS: IPRATROPIUM BROMIDE NEB SOLN 0.02% 2.5 ML VIAL INH SCH ×4 (00:16→19:23)
[2021-05-11] MEDS ORDERED: METOPROLOL TARTRATE 1 MG/ML VIAL IV PRN (00:22)
[2021-05-11] MEDS ORDERED: HEPARIN SODIUM/DEXTROSE 25,000 UNITS/500 ML BAG IV SCH (00:22)
[2021-05-11] MEDS ORDERED: XOPENEX/ATROVENT 1.25mg/0.5MG NEB COMBO NEB SCH (01:00)
[2021-05-11] MEDS: ACETAMINOPHEN 325 MG TAB PO SCH ×4 (05:53→22:30)
[2021-05-11 06:55] LABS: Basophils # (auto) 0.01 K/uL (0-0.2); Basophils % (auto) 0.2 %; Hematocrit (blood only) 39.9 % (37-47); Hemoglobin 12.7 g/dL (12.0-16.0); Immature Granulocytes # (auto) 0.01 K/uL (0.00-0.02); Immature Granulocytes % (auto) 0.2 %; Lymphocytes % (auto) 23.1 %; Mean Corpuscular Hemoglobin 31.5 pg (25-34); Mean Corpuscular Hgb Conc 31.8 g/dL (32-36); Mean Platelet Volume 10.2 fL (7.4-10.4); Monocytes # (auto) 0.42 K/uL (0.11-0.59); Monocytes % (auto) 7.5 %; Neutrophils # (auto) 3.88 K/uL (1.4-6.5); Platelet Count 309 K/uL (130-400); RDW Coefficient of Variation 14.3 % (11.5-14.5); RDW Standard Deviation 51.8 fL (36.4-46.3); Red Blood Count 4.03 M/uL (4.2-5.4); White Blood Count 5.62 K/uL (4.8-10.8)
[2021-05-11 07:18] LABS: Partial Thromboplastin Ratio 2.2
[2021-05-11 07:22] LABS: Partial Thromboplastin Time 57.7 Seconds (21.0-31.0); Troponin I 0.1 ng/ml (0-0.04)
[2021-05-11 07:23] LABS: Albumin Globulin Ratio 1.2 (0.9-2); Albumin Level 3.4 gm/dl (3.4-5.0); BUN Creatinine Ratio 32.4 (10-20); Bilirubin,Total 0.4 mg/dl (0.2-1.0); Calcium 8.4 mg/dl (8.5-10.1); Creatinine Clr Calc Pharmacy 25.1 ml/min; Est GFR (Non-African American) 31.1 ml/min; Globulin 2.8 gm/dl (2.5-4.0); Total Protein 6.2 gm/dl (6.0-8.3)
[2021-05-11] MEDS: AZITHROMYCIN 250 MG TAB PO SCH (08:53)
[2021-05-11] MEDS: hydrALAZINE 10 MG TAB PO SCH ×3 (08:54→20:33)
[2021-05-11] MEDS: LIDOCAINE 5% 1 PATCH TD SCH (08:55)
[2021-05-11] MEDS: METOPROLOL TARTRATE 50 MG TAB PO SCH ×2 (08:55→20:33)
[2021-05-11] MEDS: predniSONE 20 MG TAB PO SCH (08:56)
--- NOTE | 2021-05-11 09:40 | Cardiology Consultation ---
Date of Consultation May 11, 2021 Assessment & Plan (1) PSVT (paroxysmal supraventricular tachycardia): (2) Back pain: (3) Ambulatory dysfunction: (4) COPD exacerbation: (5) UTI symptoms: (6) Osteoporosis: (7) Acute renal failure superimposed on stage 3 chronic kidney disease: telemetry reviewed, no atrial fibrillation short salvos of PSVT, likely atrial tach EKG from 05/10 personally reviewed: I believe this is atrial tachycardia as well patient does carry a history of significant SVE burden documented on previous outpatient zio monitor asymptommatic from a cardiac standpoint increasing SVE burden to be expected in the setting of COPD exacerbation without structural abnormality on echo no further cardiac testing or intervention necessary at this time no indication for anticoagulation from a cardiac standpoint continue outpatient metoprolol dose History of Present Illness Reason for Consultation: Questionable atrial fibrillation Requesting Physician: Dr. Batista Attending Physician: Matias Batista MD History of Present Illness It was my pleasure to see Mrs. Humphries in cardiac consultation today May 11, 2021. She is a very pleasant 89-year-old woman who presented to [facility] emergency department on 05/09/2021 with complaints of low back pain and shortness of breath. She was admitted to telemetry and on monitor she had several runs of narrow complex tachycardia initially thought to be atrial fibrillation. Clinically, she denies any cardiac complaints of chest pain, shortness of breath, palpitations, lightheadedness, dizziness or syncope. Allergies Allergy/AdvReac Type Severity Reaction Status Date / Time Penicillins Allergy Unknown SWELLING Verified 02/15/18 08:10 AND ITCHY Home Medications Medication Instructions Recorded Confirmed Type metoprolol tartrate 50 mg tablet 50 mg PO BID 02/04/18 05/09/21 History albuterol sulfate 2.5 mg INHALATION Q4H PRN 05/09/21 05/09/21 History calcium carb-ergocalciferol (vit 1 tab PO DAILY 05/09/21 05/09/21 History D2) 600 mg calcium-200 unit tablet fluticasone propionate 50 2 spray INTRANASAL DAILY PRN 05/09/21 05/09/21 History mcg/actuation nasal spray,suspension hydralazine 10 mg tablet 10 mg PO TID 05/09/21 05/09/21 History mometasone-formoterol HFA 200 2 puff INHALATION BID 05/09/21 05/09/21 History mcg-5 mcg/actuation aerosol inhaler (Dulera) prednisone 5 mg tablet 5 mg PO QPM 05/09/21 05/09/21 History vitamin A-vitamin C-vit E-min 1 tab PO DAILY 05/09/21 05/09/21 History tablet Patient History Medical History CKD (chronic kidney disease) stage 2, GFR 60-89 ml/min COPD (chronic obstructive pulmonary disease) Essential tremor YUMIKO (generalized anxiety disorder) Hypertension Osteoporosis Raspy voice BASELINE PER PATIENT; DENIES ANY RECENT OR CURRENT ILLNESS Seasonal allergies Surgical History H/O: hysterectomy History of D&C History of surgery on wrist removal wrist ganglion Hx of bilateral cataract extraction Family History Daughter Family hx of colon cancer Social History Smoking Status: Current every day smoker Tobacco Type: Cigarettes Cigarettes Per Day: 6 CIGS/DAY; Second Hand Exposure: No; Do You Dip or Chew Tobacco: No; Tobacco Cessation Education Requested by Patient: No Hx Alcohol Use: No Hx Substance Use: No Preferred Language: Slovak Communication Ability: Effective Colorer Hides And Skins Required: No Beliefs That Will Affect Care: None Current Living Situation: Family Current Living Situation Comment: Grandson lives with patient Other Information That Helps Us Care for You: No Feels Safe at Home: Yes Safety Concerns: Feels Safe At This Time Assistive Devices: Walker Review of Systems Review of Systems: All systems reviewed & are unremarkable except as noted in HPI & below Physical Exam Physical Exam: Physical Exam: General: Awake, alert and oriented x 3. No acute distress. Frail HEENT: Normocephalic, atraumatic. Pupils equal, round and reactive to light and accommodation. Extraocular muscles are intact. Anicteric sclera. Moist mucous membranes. Neck: No JVD. No bruit. Cardiovascular: Regular. No S-4. Normal S-1 and S-2. No S-3. No murmurs, rubs or gallops. Pulmonary: Clear to auscultation bilaterally. No rales, rhonchi, or wheezing. Abdomen: Bowel sounds x 4, soft. No rebound, guarding or tenderness. No organomegaly. Extremities: No clubbing, cyanosis or edema. +2 pedal pulses bilaterally. Skin: Warm and dry. Results & Data ([facility]) Vital Signs (Past 12 Hours) Vital Signs Temp Pulse Pulse Resp BP Pulse Ox 05/11/21 07:57 36.7 C 76 16 121/68 96 05/11/21 07:53 36.8 C 59 L 16 143/78 H 95 05/11/21 04:22 36.6 C 63 18 112/69 93 05/11/21 00:17 74 16 93 05/10/21 23:56 36.8 C 88 18 103/61 93 05/10/21 22:19 36.6 C 134 H 18 109/67 94
--- NOTE | 2021-05-11 10:15 | Hospitalist Progress Note ---
Date of Service May 11, 2021 Assessment & Plan (1) Back pain: (2) Ambulatory dysfunction: (3) UTI symptoms: (4) COPD exacerbation: (5) Abnormal chest x-ray: (6) Hypertension: (7) CKD (chronic kidney disease) stage 2, GFR 60-89 ml/min: Plan: Back pain: Plan: This is a 89-year-old female who has significant past medical history of HTN, COPD, CKD stage III Baseline creatinine 0.9-1.1, osteoporosis, tobacco abuse, YUMIKO, essential tremor who was admitted to ED on 05/09/2021 secondary to persistent back pain and ambulatory dysfunction. Lumbar Spine CT:Discogenic degeneration with spondylitic spurring and facet arthrosis as detailed above. Moderate central canal stenosis at L3-L4 and L4-L5. Gradually worsening over the past ten days. Likely due to age-related degenerative changes. No specific injury or inciting event. admitted to med/surg PT/OT - pt may need rehab but currently declining this Scheduled acetaminophen, lidocaine patch PRN oxycodone and cyclobenzaprine Fall precautions Check blood cultures Ambulatory dysfunction: Plan: PT/OT consulted UTI symptoms: Plan: UA negative, D/C Rocephin PSVT Elevated troponin overnight pt HR was 130-150s Pt asymptomatic transferred to telemetry and started on IV heparin seen and evaluated by cardiology, no further testing warranted elevated trop 2/2 to PSVT - likely due to COPD exac echo w/o abnormality Cardiology feels PSVT and not afib, no need for anticoagulation continue metoprolol Hypoxia: COPD exacerbation: Plan: DuoNeb QID scheduled - will change to prn once clinical improving Continue O2 for now - wean as tolerated, not on at baseline Hold chronic prednisone Place on Prednisone 40mg daily x 5 days, Day 2/5 Start Azithromycin 500mg po x 3 days, Day 2/3 Acute renal failure superimposed on stage 3 chronic kidney disease: Plan: Baseline renal function 0.9-1.1 BUN/creatinine elevated to 1.76, down to 1.48 today give additional gentle IVF 80cc/hr x 2 L, repeat in a.m. Avoid nephrotoxic agents, does not appear to have received nephrotoxic agents in the past 24 hours Monitor Abnormal chest x-ray: Plan: New ill-defined 1.8 cm density - will need outpatient f/u in 1-2 months obtain procalcitonin to r/o infectious process Azithromycin ordered for COPD exac, procal WNL Hypertension: Plan: Continue home meds - metoprolol and hydralazine Bp controlled Aortic aneurysm: Plan: Discovered on Lumbar CT Extensive atherosclerotic vascular disease with abdominal aortic tortuosity. 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 No evidence of aneurysm rupture. Was never aware of this in past Pt will need follow up with PCP upon discharge Plan: DVT ppx: Resume SQ Heparin Dispo: continue steroids, antibiotics. Continue IVF for mild MANUEL, plan to return home with [facility] at home possibly in next 1-2 days PCP: Dr. Bowser, patient does follow with [facility] at home DNR/DNI Patient was seen and examined in collaboration with, Dr. Batista, please see addendum The chart was completed utilizing [employer] Speech voice recognition software. Grammatical errors, random word insertions, pronoun errors, and incomplete sentences are an occasional consequence of this system due to software limitations, ambient noise, and hardware issues. Any formal questions or concer ns about the content, text, or information contained within the body of this dictation should be directly addressed to the provider for clarification. Admission and Anticipated Discharge Date Admission Date: May 09, 2021 Supervising Physician Co-Signing Physician Notes Patient is seen and examined at bedside. Sitting in chair during my encounter. Less cough today as per patient. Denies any chest pain, shortness of breath, dizziness, nausea, abdominal pain. On exam patient is thin, elderly, no apparent distress, normocephalic atraumatic, lungs-clear to auscultation, S1-S2, no murmur, no pedal edema, abdomen soft, nontender, normal bowel sounds, alert, awake, oriented, grossly no focal deficits. Back pain seems to be controlled. PSVT overnight, monitor telemetry. Continue current management for COPD exacerbation. Renal function continues to improve. Monitor renal function and avoid nephrotoxic agents as able. Patient may benefit from rehab placement. I personally reviewed the record. Patient is interviewed and examined at bedside. Patient's care is coordinated with Jessica Hurley PA-C. Please refer to the documentation above for details of patient's presentation and for discussion of other issues. Subjective Patient was seen and examined in room 306. Follow-up spinal stenosis, COPD exacerbation, possible UTI. Pt feels well this morning. She no longer complains of back pain. "I feel good this morning." "There is nothing wrong with my heart." Denies f/c/s, chest pain, sob, n/v/d. She denies any chest pain or palpitations when HR was elevated. Review of Systems Review of Systems: All systems reviewed & are unremarkable except as noted in HPI & below Physical Exam Physical Exam: Gen: Thin, elderly, female, sitting up in bedside chair, NAD, A&O x3, answers questions appropriately, no dyspnea with conversation HEENT: Normocephalic, atraumatic, conjunctivae moist, sclerae anicteric, mucous membranes moist. Lung: On 2 L via O2 NC ,clear to Auscultation bilaterally without w/r/r Heart: Regular rate, regular rhythm, no murmurs, rubs, or gallops Abdomen: Soft, NT, ND +BS x 4 Extremities: No edema Skin: Warm, no rash, negative turgor. Results & Data Results & Data ([facility]) Vital Signs (Past 12 Hours) Vital Signs Temp Pulse Pulse Resp BP Pulse Ox 05/11/21 07:57 36.7 C 76 16 121/68 96 05/11/21 07:53 36.8 C 59 L 16 143/78 H 95 05/11/21 04:22 36.6 C 63 18 112/69 93 05/11/21 00:17 74 16 93 05/10/21 23:56 36.8 C 88 18 103/61 93 05/10/21 22:19 36.6 C 134 H 18 109/67 94 Laboratory Results Short CBC 05/09/21 05/10/21 05/10/21 Range/Units 08:15 05:38 22:50 WBC 6.84 (4.8-10.8) K/uL Hgb 13.3 (12.0-16.0) g/dL Hct 41.0 (37-47) % Plt Count 309 (130-400) K/uL BUN 18 35 H (6-23) mg/dl Creatinine 0.77 1.76 H D (0.6-1.2) mg/dl 05/11/21 05/11/21 Range/Units 06:20 06:20 WBC 5.62 (4.8-10.8) K/uL Hgb 12.7 (12.0-16.0) g/dL Hct 39.9 (37-47) % Plt Count 309 (130-400) K/uL BUN 48 H (6-23) mg/dl Creatinine 1.48 H (0.6-1.2) mg/dl BMP 05/11/21 06:20 Sodium 136 Potassium 4.0 Chloride 102 Carbon Dioxide 27 BUN 48 H Creatinine 1.48 H Glucose 120 H Calcium 8.4 L Cardiac Enzymes 05/10/21 05/11/21 Range/Units 22:33 06:20 Troponin I 0.05 H* 0.10 H* (0-0.04) ng/ml Liver Function 05/11/21 Range/Units 06:20 Total Bilirubin 0.4 (0.2-1.0) mg/dl AST 16 (13-39) U/L ALT 13 (7-52) U/L Alkaline Phosphatase 29 L (34-104) U/L Albumin 3.4 (3.4-5.0) gm/dl Medications Administered Current Inpatient Medications Acetaminophen (Acetaminophen 325 Mg Tab) 650 mg PO Q6H [facility] Stop: 06/08/21 11:14 Last Admin: 05/11/21 05:53 Dose: 650 mg Documented by: Azithromycin (Azithromycin 250 Mg Tab) 500 mg PO DAILY [facility] Stop: 05/12/21 09:01 Last Admin: 05/11/21 08:53 Dose: 500 mg Documented by: Cyclobenzaprine HCl (Cyclobenzaprine Hcl 5 Mg Tab) 5 mg PO BID PRN PRN Reason: Muscle Spasm Stop: 06/08/21 11:10 Fluticasone/Vilanterol (Fluticasone/Vilanterol 100/25mcg 14 Puffs/Inhaler) 1 puffs INH Q24H [facility]; Protocol Stop: 06/08/21 20:59 Last Admin: 05/10/21 22:21 Dose: 1 puffs Documented by: Hydralazine HCl (Hydralazine 10 Mg Tab) 10 mg PO TID [facility] Stop: 06/08/21 13:59 Last Admin: 05/11/21 08:54 Dose: 10 mg Documented by: Ceftriaxone Sodium 1,000 mg/ (Dextrose) 50 mls @ 100 mls/hr IV Q24H [facility]; Protocol Stop: 05/14/21 12:29 Last Infusion: 05/10/21 13:05 Dose: Infused Documented by: Heparin Sodium/Dextrose (Heparin Sodium/Dextrose) 25,000 units in 500 mls @ 15 mls/hr IV .Q24H [facility]; Protocol Stop: 06/09/21 22:44 Last Titration: 05/11/21 07:25 Dose: 750 units/hr, 15 mls/hr Documented by: Sodium Chloride (Nss 1000ml) 1,000 mls @ 80 mls/hr IV .[id number] [facility] Stop: 05/12/21 10:59 Ipratropium [place] (Ipratropium [place] Neb Soln 0.02% 2.5 Ml Vial) 0.5 mg INH Q6R [facility] Stop: 06/10/21 00:59 Last Admin: 05/11/21 07:52 Dose: Not Given Documented by: Levalbuterol HCl (Levalbuterol 1.25mg/0.5ml Neb) 1.25 mg INH Q6R [facility] Stop: 06/10/21 00:59 Last Admin: 05/11/21 07:52 Dose: Not Given Documented by: Lidocaine (Lidocaine 5% 1 Patch) 1 patch TD QAM [facility] Stop: 06/08/21 11:14 Last Admin: 05/11/21 08:55 Dose: 1 patch Documented by: Metoprolol Tartrate (Metoprolol Tartrate 50 Mg Tab) 50 mg PO BID [facility] Stop: 06/08/21 11:48 Last Admin: 05/11/21 08:55 Dose: 50 mg Documented by: Metoprolol Tartrate (Metoprolol Tartrate 1 Mg/Ml Vial) 5 mg IV Q6H PRN PRN Reason: Tachycardia Stop: 06/10/21 00:21 Miscellaneous (Remove Lidoderm Patch) 1 ea N/A DAILY@2100 [facility] Stop: 06/08/21 20:59 Last Admin: 05/10/21 21:06 Dose: 1 ea Documented by: Oxycodone HCl (Oxycodone Hcl Ir 5 Mg Tab (Immediate Release)) 5 mg PO Q12 PRN PRN Reason: Pain Stop: 05/23/21 11:10 Prednisone (Prednisone 5 Mg Tab) 5 mg PO QPM [facility] Stop: 06/08/21 20:59 Last Admin: 05/09/21 20:02 Dose: 5 mg Documented by: Prednisone (Prednisone 20 Mg Tab) 40 mg PO DAILY [facility] Stop: 05/15/21 11:14 Last Admin: 05/11/21 08:56 Dose: 40 mg Documented by: (1) Back pain Back pain laterality: bilateral Back pain location: low back pain Chronicity: acute Sciatica laterality: bilateral sciatica Sciatica presence: with sciatica Qualified Code(s): M54.42 - Lumbago with sciatica, left side; M54.41 - Lumbago with sciatica, right side
[2021-05-11] MEDS: SODIUM CHLORIDE 0.9% 1000ML 1,000 ML IV SCH ×2 (11:34→22:33)
--- NOTE | 2021-05-11 15:38 | Electrocardiogram Report ---
Test Reason : Blood Pressure : / mmHG Vent. Rate : 145 BPM Atrial Rate : 150 BPM P-R Int : 000 ms QRS Dur : 078 ms QT Int : 304 ms P-R-T Axes : 000 070 -06 degrees QTc Int : 472 ms Atrial fibrillation with rapid ventricular response Nonspecific ST and T wave abnormality Abnormal ECG When compared with ECG of 10-MAY-2021 11:23, Atrial fibrillation has replaced Sinus rhythm Vent. rate has increased BY 75 BPM Non-specific change in ST segment in Inferior leads ST now depressed in Anterior leads T wave inversion now evident in Inferior leads Confirmed by Jordy Dove ([id number]) on 05/11/2021 3:37:45 PM Referred By: REFERRED SELF Confirmed By:Aron Dove
[2021-05-11] MEDS: HEPARIN SOD 5,000 UNIT/0.5 ML VIAL SQ SCH (20:33)
[2021-05-11] MEDS: FLUTICASONE/VILANTEROL 100/25MCG 14 PUFFS/INHALER INH SCH (22:31)
[2021-05-12] MEDS: IPRATROPIUM BROMIDE NEB SOLN 0.02% 2.5 ML VIAL INH SCH ×3 (00:04→12:30)
[2021-05-12] MEDS: LEVALBUTEROL 1.25MG/0.5ML NEB INH SCH ×3 (00:04→12:30)
[2021-05-12] MEDS: ACETAMINOPHEN 325 MG TAB PO SCH ×4 (05:35→23:57)
[2021-05-12 07:13] LABS: Basophils # (auto) 0.01 K/uL (0-0.2); Basophils % (auto) 0.2 %; Eosinophils # (auto) 0.01 K/uL (0-0.5); Eosinophils % (auto) 0.2 %; Hematocrit (blood only) 37.1 % (37-47); Hemoglobin 11.9 g/dL (12.0-16.0); Immature Granulocytes # (auto) 0.01 K/uL (0.00-0.02); Immature Granulocytes % (auto) 0.2 %; Lymphocytes # (auto) 1.86 K/uL (1.2-3.4); Lymphocytes % (auto) 28.1 %; Mean Corpuscular Hemoglobin 31.9 pg (25-34); Mean Corpuscular Hgb Conc 32.1 g/dL (32-36); Mean Corpuscular Volume 99.5 fL (80-100); Mean Platelet Volume 10.1 fL (7.4-10.4); Monocytes # (auto) 0.55 K/uL (0.11-0.59); Monocytes % (auto) 8.3 %; Neutrophils # (auto) 4.19 K/uL (1.4-6.5); Platelet Count 288 K/uL (130-400); RDW Coefficient of Variation 14.3 % (11.5-14.5); RDW Standard Deviation 51.7 fL (36.4-46.3); Red Blood Count 3.73 M/uL (4.2-5.4); White Blood Count 6.63 K/uL (4.8-10.8)
[2021-05-12 07:17] LABS: Partial Thromboplastin Time 26.3 Seconds (21.0-31.0)
[2021-05-12 07:49] LABS: BUN Creatinine Ratio 43.7 (10-20); Calcium 8.5 mg/dl (8.5-10.1); Creatinine Clr Calc Pharmacy 42.6 ml/min; Est GFR (African American) 68.5 ml/min; Est GFR (Non-African American) 59.1 ml/min; Potassium 3.9 mmol/L (3.5-5.1)
[2021-05-12] MEDS: HEPARIN SOD 5,000 UNIT/0.5 ML VIAL SQ SCH ×2 (07:52→20:30)
[2021-05-12] MEDS: AZITHROMYCIN 250 MG TAB PO SCH (07:53)
[2021-05-12] MEDS: LIDOCAINE 5% 1 PATCH TD SCH (07:53)
[2021-05-12] MEDS: hydrALAZINE 10 MG TAB PO SCH ×3 (07:54→20:30)
[2021-05-12] MEDS: METOPROLOL TARTRATE 50 MG TAB PO SCH ×2 (07:54→20:31)
[2021-05-12] MEDS: predniSONE 20 MG TAB PO SCH (07:54)
--- NOTE | 2021-05-12 13:35 | Hospitalist Progress Note ---
Date of Service May 12, 2021 Assessment & Plan (1) Back pain: (2) Ambulatory dysfunction: (3) UTI symptoms: (4) COPD exacerbation: (5) Abnormal chest x-ray: (6) Hypertension: (7) CKD (chronic kidney disease) stage 2, GFR 60-89 ml/min: Plan: Back pain: This is a 89-year-old female who has significant past medical history of HTN, COPD, CKD stage III Baseline creatinine 0.9-1.1, osteoporosis, tobacco abuse, YUMIKO, essential tremor who was admitted to ED on 05/09/2021 secondary to persistent back pain and ambulatory dysfunction. Lumbar Spine CT:Discogenic degeneration with spondylitic spurring and facet arthrosis as detailed above. Moderate central canal stenosis at L3-L4 and L4-L5. Gradually worsening over the past ten days. Likely due to age-related degenerative changes. No specific injury or inciting event. admitted to med/surg PT/OT - pt may need rehab but currently declining this Scheduled acetaminophen, lidocaine patch PRN oxycodone and cyclobenzaprine Fall precautions Check blood cultures Ambulatory dysfunction: PT/OT consulted UTI symptoms: UA negative, D/C Rocephin PSVT Elevated troponin overnight pt HR was 130-150s, asymptomatic. transferred to telemetry and started on IV heparin seen and evaluated by cardiology, no further testing warranted elevated trop 2/2 to PSVT - likely due to COPD exac echo w/o abnormality Cardiology feels PSVT and not afib, no need for anticoagulation continue metoprolol Hypoxia: COPD exacerbation: DuoNeb QID scheduled - will change to prn once clinical improving Continue O2 for now - wean as tolerated, not on at baseline Hold chronic prednisone Place on Prednisone 40mg daily x 5 days, Day 3/5 Start Azithromycin 500mg po x 3 days, Day 3/3 Acute renal failure superimposed on stage 3 chronic kidney disease -> resolved Baseline renal function 0.9-1.1 BUN/creatinine elevated to 1.76, down to 1.48 today give additional gentle IVF 80cc/hr x 2 L, repeat in a.m. Avoid nephrotoxic agents, does not appear to have received nephrotoxic agents in the past 24 hours Monitor Abnormal chest x-ray: New ill-defined 1.8 cm density - will need outpatient f/u in 1-2 months obtain procalcitonin to r/o infectious process Azithromycin ordered for COPD exac, procal WNL Hypertension: Continue home meds - metoprolol and hydralazine Aortic aneurysm: Discovered on Lumbar CT Extensive atherosclerotic vascular disease with abdominal aortic tortuosity. 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 No evidence of aneurysm rupture. Was never aware of this in past Pt will need follow up with PCP upon discharge Discharge planning issues: Patient lives with grandson and desires to return home. Refuses placement. Agreeable to HH but per CM they are unavailable until next Sunday. [facility] also follows but not available for 2-3 days. Discussed with daughter in law Lucero ([phone]) who has significant concerns for patient's safety and cleanliness of living conditions. States she went to clean up home while patient was admitted and couch was soaked in urine with feces on the floor. Only has a sink and toilet on first floor and is unable to climb stairs to access shower on second floor. Does now sound like grandson is available or able to help patient as much as patient communicated initially. Patient declines event short term rehab stay. CM to call Lucero after reaching out to [facility] community case manager. Will clarify PT recommendation tomorrow given new information and safety concerns. Appreciate CM involvement. DVT ppx: Resume SQ Heparin Dispo: continue steroids, antibiotics. Continue IVF for mild MANUEL, plan to return home with [facility] possibly in next 1-2 days PCP: Dr. Bowser, patient does follow with [facility] DNR/DNI Patient was seen and examined in collaboration with, Dr. Batista, please see addendum Admission and Anticipated Discharge Date Admission Date: May 09, 2021 Supervising Physician Co-Signing Physician Notes Patient is seen and examined at bedside. States feeling well today. Had physical therapy earlier today. No new complaints. 2 step--did not qualify for oxygen. Has only minimal cough. Denies any chest pain, shortness of breath, dizziness, nausea, abdominal pain. On exam patient is thin, elderly, no apparent distress, normocephalic atraumatic, lungs-clear to auscultation, S1-S2, no murmur, no pedal edema, abdomen soft, nontender, normal bowel sounds, alert, awake, oriented, grossly no focal deficits. Back pain seems to be controlled. No recurrence of PSVT overnight. Continue current management for COPD exacerbation. 2 step: Did not qualify for supplemental oxygen. Renal function back to baseline. IV fluids discontinued.I personally reviewed the record. Patient is interviewed and examined at bedside. Patient's care is coordinated with Kirstie Max PA-C. Please refer to the documentation above for details of patient's presentation and for discussion of other issues. Subjective Patient was seen and examined in 242-2. Seen in follow-up for spinal stenosis, COPD exacerbation, possible UTI. Feeling well today. No changes overnight. Denies f/c/s, chest pain, sob, n/v/d. Tolerating diet without issue. She denies any chest pain or palpitations when HR was elevated. Review of Systems Review of Systems: At least ten systems reviewed and negative except as noted in the HPI. Physical Exam Physical Exam: Gen: WD/WN, NAD, sitting in bed, thin and elderly female, appears anxious but answers questions appropriately, A&Ox3 HEENT: Normocephalic, atraumatic, conjunctivae moist, sclerae anicteric, mucous membranes moist Lung: Clear to Auscultation bilaterally, no wheezes/rales/rhonchi Heart: Regular rate, regular rhythm, no murmurs, rubs, or gallops Abdomen: Soft, NT, ND +BS x 4 Extremities: no edema Skin: Warm, no rash Results & Data Results & Data ([facility]) Vital Signs (Past 12 Hours) Vital Signs Temp Pulse Pulse Pulse Pulse Pulse Pulse 05/12/21 13:00 05/12/21 12:32 68 05/12/21 12:13 88 69 63 05/12/21 11:10 36.6 C 72 05/12/21 09:46 64 05/12/21 07:42 36.9 C 59 L 05/12/21 07:38 60 05/12/21 06:49 61 05/12/21 03:12 36.5 C 63 Pulse Resp Resp Resp Resp Resp BP 05/12/21 13:00 170/71 H 05/12/21 12:32 18 05/12/21 12:13 70 20 20 18 16 05/12/21 11:10 20 179/85 H 05/12/21 09:46 154/73 H 05/12/21 07:42 20 196/81 H 05/12/21 07:38 05/12/21 06:49 18 05/12/21 03:12 18 157/74 H Pulse Ox Pulse Ox Pulse Ox Pulse Ox Pulse Ox 05/12/21 13:00 05/12/21 12:32 91 05/12/21 12:13 91 87 L 90 90 05/12/21 11:10 96 05/12/21 09:46 05/12/21 07:42 92 05/12/21 07:38 05/12/21 06:49 93 05/12/21 03:12 97 (1) Back pain Back pain laterality: bilateral Back pain location: low back pain Chronicity: acute Sciatica laterality: bilateral sciatica Sciatica presence: with sciatica Qualified Code(s): M54.42 - Lumbago with sciatica, left side; M54.41 - Lumbago with sciatica, right side
[2021-05-12] MEDS ORDERED: LEVALBUTEROL 1.25MG/0.5ML NEB INH PRN (18:02)
[2021-05-12] MEDS ORDERED: IPRATROPIUM BROMIDE NEB SOLN 0.02% 2.5 ML VIAL INH PRN (18:02)
[2021-05-12] MEDS: FLUTICASONE/VILANTEROL 100/25MCG 14 PUFFS/INHALER INH SCH (20:29)
[2021-05-13] MEDS: ACETAMINOPHEN 325 MG TAB PO SCH ×4 (05:01→22:56)
[2021-05-13 07:34] LABS: BUN Creatinine Ratio 41.4 (10-20); Calcium 8.5 mg/dl (8.5-10.1); Creatinine Clr Calc Pharmacy 42.6 ml/min; Est GFR (African American) 68.5 ml/min; Est GFR (Non-African American) 59.1 ml/min; Potassium 4.1 mmol/L (3.5-5.1)
[2021-05-13] MEDS: METOPROLOL TARTRATE 50 MG TAB PO SCH ×2 (08:56→20:21)
[2021-05-13] MEDS: LIDOCAINE 5% 1 PATCH TD SCH (08:56)
[2021-05-13] MEDS: hydrALAZINE 10 MG TAB PO SCH ×3 (08:59→20:21)
[2021-05-13] MEDS: HEPARIN SOD 5,000 UNIT/0.5 ML VIAL SQ SCH ×2 (08:59→20:19)
[2021-05-13] MEDS: predniSONE 20 MG TAB PO SCH (09:01)
--- NOTE | 2021-05-13 16:14 | Cardiology Progress Note ---
Date of Service May 13, 2021 Assessment & Plan (1) PSVT (paroxysmal supraventricular tachycardia): (2) Back pain: (3) Ambulatory dysfunction: (4) COPD exacerbation: (5) UTI symptoms: (6) Osteoporosis: (7) Acute renal failure superimposed on stage 3 chronic kidney disease: Plan: telemetry reviewed, no atrial fibrillation short salvos of PSVT, likely atrial tach EKG from 05/10 personally reviewed: I believe this is atrial tachycardia as well patient does carry a history of significant SVE burden documented on previous outpatient zio monitor asymptommatic from a cardiac standpoint increasing SVE burden to be expected in the setting of COPD exacerbation without structural abnormality on echo no further cardiac testing or intervention necessary at this time no indication for anticoagulation from a cardiac standpoint continue outpatient metoprolol dose Okay to DC telemetry from a cardiac standpoint. Admission and Anticipated Discharge Date Admission Date: May 09, 2021 Subjective Patient seen and examined, chart reviewed. States that she is feeling well today and states that back pain and shortness of breath continue to improve. Denies any chest pain or palpitations. Telemetry reviewed: Normal sinus rhythm with occasional supraventricular ectopy. Review of Systems Review of Systems: All systems reviewed & are unremarkable except as noted in HPI & below Physical Exam Physical Exam: Physical Exam: General: Awake, alert and oriented x 3. No acute distress. Frail HEENT: Normocephalic, atraumatic. Pupils equal, round and reactive to light and accommodation. Extraocular muscles are intact. Anicteric sclera. Moist mucous membranes. Neck: No JVD. No bruit. Cardiovascular: Regular. No S-4. Normal S-1 and S-2. No S-3. No murmurs, rubs or gallops. Pulmonary: Clear to auscultation bilaterally. No rales, rhonchi, or wheezing. Abdomen: Bowel sounds x 4, soft. No rebound, guarding or tenderness. No organomegaly. Extremities: No clubbing, cyanosis or edema. +2 pedal pulses bilaterally. Skin: Warm and dry. Results & Data ([facility]) Vital Signs (Past 12 Hours) Vital Signs Temp Pulse Pulse Pulse Resp BP Pulse Ox 05/13/21 15:11 68 05/13/21 14:54 37.2 C 66 166/83 H 96 05/13/21 12:24 36.7 C 66 16 145/85 H 92 05/13/21 08:00 37.0 C 74 16 176/80 H 98 05/13/21 04:59 36.9 C 63 18 186/79 H 92 (1) Back pain Back pain laterality: bilateral Back pain location: low back pain Chronicity: acute Sciatica laterality: bilateral sciatica Sciatica presence: with sciatica Qualified Code(s): M54.42 - Lumbago with sciatica, left side; M54.41 - Lumbago with sciatica, right side
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
[2021-05-13] MEDS: FLUTICASONE/VILANTEROL 100/25MCG 14 PUFFS/INHALER INH SCH (20:18)
[2021-05-14] MEDS: ACETAMINOPHEN 325 MG TAB PO SCH ×4 (05:35→22:50)
[2021-05-14 07:17] LABS: Partial Thromboplastin Time 25.9 Seconds (21.0-31.0)
[2021-05-14] MEDS: LIDOCAINE 5% 1 PATCH TD SCH (08:43)
[2021-05-14] MEDS: METOPROLOL TARTRATE 50 MG TAB PO SCH ×2 (08:43→20:33)
[2021-05-14] MEDS: hydrALAZINE 10 MG TAB PO SCH ×3 (08:44→20:33)
[2021-05-14] MEDS: predniSONE 20 MG TAB PO SCH (08:44)
[2021-05-14] MEDS ORDERED: amLODIPine BESYLATE 5 MG TAB PO ONE (09:22)
[2021-05-14] MEDS: HEPARIN SOD 5,000 UNIT/0.5 ML VIAL SQ SCH ×2 (09:49→20:33)
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
--- NOTE | 2021-05-14 17:21 | XRay Report ---
XR chest 1V portable HISTORY: 89 years-old Female cough acute cough COMPARISON: Chest radiograph 05/09/2019 exam TECHNIQUE: AP view the chest FINDINGS: Cardiomediastinal and hilar silhouettes are unchanged. Emphysema with chronic interstitial coarsening . The previously questioned 1.8 cm nodular density of the right midlung is not appreciated on today's study. Mild bibasilar atelectasis/scarring is again noted. Healed chronic fracture deformity of the proximal left humerus. Degenerative changes of the shoulders and spine. IMPRESSION: 1. No acute process. 2. Emphysema with chronic interstitial coarsening. 3. Previously questioned 1.8 cm nodular density of the right midlung is not appreciated on today's st udy. ACT 112: Negative or not required by law. The above report was generated using voice recognition software. It may contain grammatical, syntax o r spelling errors. Electronically signed by: Chester Pandya M.D. 05/14/2021 5:20 PM
[2021-05-14] MEDS: FLUTICASONE/VILANTEROL 100/25MCG 14 PUFFS/INHALER INH SCH (20:33)
[2021-05-14] MEDS: DOXYCYCLINE HYCLATE 100 MG CAP PO SCH (22:50)
[2021-05-15] MEDS: ACETAMINOPHEN 325 MG TAB PO SCH ×4 (05:40→23:42)
[2021-05-15 07:19] LABS: Partial Thromboplastin Time 25.9 Seconds (21.0-31.0)
[2021-05-15] MEDS: DOXYCYCLINE HYCLATE 100 MG CAP PO SCH ×2 (08:59→20:49)
[2021-05-15] MEDS: HEPARIN SOD 5,000 UNIT/0.5 ML VIAL SQ SCH ×2 (09:00→20:50)
[2021-05-15] MEDS: METOPROLOL TARTRATE 50 MG TAB PO SCH ×2 (09:00→20:50)
[2021-05-15] MEDS: hydrALAZINE 10 MG TAB PO SCH ×3 (09:00→20:50)
[2021-05-15] MEDS: predniSONE 20 MG TAB PO SCH (09:01)
[2021-05-15] MEDS: LIDOCAINE 5% 1 PATCH TD SCH (09:01)
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
[2021-05-15] MEDS: FLUTICASONE/VILANTEROL 100/25MCG 14 PUFFS/INHALER INH SCH (20:49)
[2021-05-16] MEDS: ACETAMINOPHEN 325 MG TAB PO SCH ×2 (05:29→12:12)
[2021-05-16] MEDS: DOXYCYCLINE HYCLATE 100 MG CAP PO SCH (07:36)
[2021-05-16] MEDS: LIDOCAINE 5% 1 PATCH TD SCH (07:36)
[2021-05-16] MEDS: HEPARIN SOD 5,000 UNIT/0.5 ML VIAL SQ SCH (07:37)
[2021-05-16] MEDS: hydrALAZINE 10 MG TAB PO SCH ×2 (07:37→12:12)
[2021-05-16] MEDS: METOPROLOL TARTRATE 50 MG TAB PO SCH (07:37)
[2021-05-16] MEDS ORDERED: predniSONE 20 MG TAB PO SCH (09:00)
--- NOTE | 2021-05-16 12:38 | Hospitalist Progress Note ---
Date of Service May 16, 2021 Assessment & Plan (1) Back pain: (2) Ambulatory dysfunction: (3) UTI symptoms: (4) COPD exacerbation: (5) Abnormal chest x-ray: (6) Hypertension: (7) CKD (chronic kidney disease) stage 2, GFR 60-89 ml/min: Plan: Patient is an 89 yr female with H/O HTN, COPD, CKD stage III Baseline creatinine 0.9-1.1, osteoporosis, tobacco abuse, YUMIKO, essential tremor who was admitted to ED on 05/09/2021 secondary to persistent back pain and ambulatory dysfunction. Lumbago Lumbar Spine CT:Discogenic degeneration with spondylitic spurring and facet arthrosis as detailed above. Moderate central canal stenosis at L3-L4 and L4-L5. Gradually worsened over the past ten days. No H/O recent Trauma Continue PT/OT Continue acetaminophen, lidocaine patch PRN oxycodone and cyclobenzaprine Fall precautions Ambulatory dysfunction: PT/OT : Home with Home Health UTI symptoms:--Ruled out UA negative, Rocephin discontinued PSVT Elevated troponin overnight pt HR was 130-150s, asymptomatic. Appreciate cardiology Input elevated trop 2/2 to PSVT, COPD exac Echo reviewed continue metoprolol Hypoxia: COPD exacerbation: DuoNeb PRN Hold chronic prednisone Completed course of Azithromycin 500mg po on 05/13/21 Given persistent symptoms, started on doxycycline Continue prednisone 2 Step: Needs 2L with rest and with activity Titrate Oxygen to keep Sats 88-92% MANUEL on CKD III --resolved Baseline renal function 0.9-1.1 Cr:1.76>1.48>0.87 Received IV fluids Avoid nephrotoxic agents Monitor renal function Abnormal chest x-ray: New ill-defined 1.8 cm density - will need outpatient f/u in 1-2 months Procalcitonin normal Received antibiotic course Hypertension: Continue Metoprolol and hydralazine Aortic aneurysm: Discovered on Lumbar CT Extensive atherosclerotic vascular disease with abdominal aortic tortuosity. 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 No evidence of aneurysm rupture. Was never aware of this in past Needs follow up with PCP upon discharge DVT Px: SQ Heparin Code Status DNR/DNI Disposition Home with Home Health Follows with [facility] at home Family concerned about patient's safety. APS involved Case Management on board Admission and Anticipated Discharge Date Admission Date: May 09, 2021 Subjective Patient is seen and examined at bedside States feeling well today Cough improved Denies chest pain, dyspnea, dizziness, nausea, abdominal pain Had 2 step today Review of Systems Review of Systems: All systems reviewed & are unremarkable except as noted in Subjective Physical Exam Physical Exam: Physical Exam: Vitals signs as noted above General Appearance:Elderly, no apparent distress Head: normocephalic, Atraumatic Eyes: normal inspection, EOMI Neck: supple, Trachea midline Respiratory/Chest: Decreased breath sounds, CTA, No accessory muscle use Cardiovascular: S1, S2, No murmur Abdomen/GI:Soft, Non tender, Bowel sounds present Extremities/Musculoskeletal:normal inspection, no edema Neurologic/Psych:AAOX3, grossly no focal neurological deficits Skin: normal color, warm Results & Data Results & Data ([facility]) Vital Signs (Past 12 Hours) Vital Signs Temp Pulse Pulse Pulse Pulse Pulse Pulse 05/16/21 12:33 63 79 71 69 05/16/21 11:41 36.7 C 68 05/16/21 08:00 53 L 05/16/21 07:32 36.6 C 81 05/16/21 03:24 36.6 C 62 Resp Resp Resp Resp Resp BP BP 05/16/21 12:33 18 21 18 18 05/16/21 11:41 19 172/86 H 05/16/21 08:00 05/16/21 07:32 19 192/96 H 05/16/21 03:24 18 179/88 H Pulse Ox Pulse Ox Pulse Ox Pulse Ox Pulse Ox 05/16/21 12:33 92 94 96 87 L 05/16/21 11:41 93 05/16/21 08:00 05/16/21 07:32 92 05/16/21 03:24 91 (1) Back pain Back pain laterality: bilateral Back pain location: low back pain Chronicity: acute Sciatica laterality: bilateral sciatica Sciatica presence: with sciatica Qualified Code(s): M54.42 - Lumbago with sciatica, left side; M54.41 - Lumbago with sciatica, right side
--- NOTE | 2021-05-16 13:08 | Discharge Summary ---
Date of Service May 16, 2021 Admission HPI Per Admitting Provider This is an 89 y/o female with a PMH of COPD, HTN, YUMIKO, CKD3a, osteoporosis, and essential tremor who presents to the ED today with progressive back pain over the past ten days resulting in an inability to ambulate and care for herself at home. Pt reports that she had an episode of low back pain about a month ago that lasted a few days then went away without specific intervention. She was doing well until about ten days ago when she had the gradual onset of bilateral lumbar pain that radiates intermittently into her buttocks and down the back of both of her legs to her toes. She has noted some decreased sensation in the right lower leg. Denies bowel or bladder incontinence. She reports that the pain is now so severe that she cannot ambulate adequately at home and her family is unable to care for her. She was seen at the ED in [place] two days ago but reports she was told it was a "muscle strain" and she was given muscle relaxers to try that have not helped. At home, she was taking Tylenol for the pain, which helped initially but is no longer effective. She is not eating much due to the pain. The pain may wake her from sleep at night. She reports occasional similar back pain previously but never this severe or this persistent. No prior back surgeries. Pt also notes chronic issues with urinary frequency, but this is unchanged from usual. Denies fevers, chills, hematuria. Has reported some intermittent dysuria over past week. Admission Exam Per Admitting Provider Physical Exam Constitutional: + frail appearing; no acute distress Eyes: PERRL, conjunctivae normal, anicteric sclerae Neck: trachea midline Respiratory: no respiratory distress Auscultation: + wheezes (throughout); no rales and no rhonchi coarse BS bilaterlly. +nasal canula in place - O2 at 2L Cardiovascular: Rate/Rhythm: regular rate and regular rhythm Vessels: dorsalis pedis pulses present and radial pulses present Extremities: normal capillary refill; no pedal edema Gastrointestinal (Abdomen): Inspection/Auscultation: normal bowel sounds; abdomen not distended Percussion/Palpation: abdomen soft; abdomen nontender Musculoskeletal: Head/Neck/Chest: normocephalic, head atraumatic and neck supple Spine: + paraspinal tenderness (lumbar) No spinous process tenderness Strength Testing: Dorsiflexion - 5/5 bilaterally and equal Plantar flexion - 5/5 bilaterally and equal Hip flexion/extension - 3/5 on right, 4/5 on left Skin: no rashes and no jaundice Neurologic: moves all extremities; no focal motor deficits slightly diminished sensation to light touch right foot and ankle area Psychiatric: A+Ox3, euthymic affect Principal Diagnosis Acute COPD exacerbation Hypoxia Lumbago Acute kidney injury--Resolved Right midlung nodular opacity Discharge Data Allergies Allergy/AdvReac Type Severity Reaction Status Date / Time Penicillins Allergy Unknown SWELLING Verified 02/15/18 08:10 AND ITCHY Consultations 05/09/21 09:55 ED Decision to Admit Stat 05/11/21 07:50 Consult Cardiology Routine Ordered Studies 05/09/21 07:57 CT lumbar spine wo con Stat 05/09/21 08:20 CT head/brain wo con Stat Hospital Course (1) Back pain: (2) Ambulatory dysfunction: (3) UTI symptoms: (4) COPD exacerbation: (5) Abnormal chest x-ray: (6) Hypertension: (7) CKD (chronic kidney disease) stage 2, GFR 60-89 ml/min: Patient is an 89 yr female with H/O HTN, COPD, CKD stage III Baseline creatinine 0.9-1.1, osteoporosis, tobacco abuse, YUMIKO, essential tremor who was admitted to ED on 05/09/2021 secondary to persistent back pain and ambulatory dysfunction. Lumbago Lumbar Spine CT:Discogenic degeneration with spondylitic spurring and facet arthrosis as detailed above. Moderate central canal stenosis at L3-L4 and L4-L5. Gradually worsened over the past ten days. No H/O recent Trauma Continue PT/OT Continue acetaminophen, lidocaine patch PRN oxycodone and cyclobenzaprine Fall precautions Ambulatory dysfunction: PT/OT : Home with Home Health UTI symptoms:--Ruled out UA negative, Rocephin discontinued PSVT Elevated troponin overnight pt HR was 130-150s, asymptomatic. Appreciate cardiology Input elevated trop 2/2 to PSVT, COPD exac Echo reviewed continue metoprolol Hypoxia: COPD exacerbation: DuoNeb PRN Hold chronic prednisone Completed course of Azithromycin 500mg po on 05/13/21 Given persistent symptoms, started on doxycycline Continue prednisone 2 Step: Needs 2L with rest and with activity Titrate Oxygen to keep Sats 88-92% MANUEL on CKD III --resolved Baseline renal function 0.9-1.1 Cr:1.76>1.48>0.87 Received IV fluids Avoid nephrotoxic agents Monitor renal function Abnormal chest x-ray: New ill-defined 1.8 cm density - will need outpatient f/u in 1-2 months Procalcitonin normal Received antibiotic course Hypertension: Continue Metoprolol and hydralazine Aortic aneurysm: Discovered on Lumbar CT Extensive atherosclerotic vascular disease with abdominal aortic tortuosity. 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 No evidence of aneurysm rupture. Was never aware of this in past Needs follow up with PCP upon discharge DVT Px: SQ Heparin Code Status DNR/DNI Disposition Home with Home Health Follows with [facility] at home Family concerned about patient's safety. 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 Call non-emergency contact if: you have any medication questions, your symptoms worsen, your pain is concerning for you and you have a fever Follow-up/Referrals: Carlos Bowser MD [Primary Care Provider] - (Date & Time 05/17/2021 3:00 PM Provider Carlos Bowser MD Department Family [facility] ) Diet: Heart Healthy Addtl Attending Provider Instructions: Follow-up with your primary care physician on 05/17/2021 3:00 PM Follow-up with your 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 --Continue Prednisone Taper Course--- take prednisone 10 mg daily for 3 more days and then transition to your home dose of Prednisone 5 mg daily. --Complete antibiotic course doxycycline for 3 more days as prescribed. --- Quit smoking tobacco as advised. Seek immediate medical attention if your symptoms reoccur or worsen Please take all medications as instructed on discharge list below. Please call if you have any questions or problems. You can reach a [facility] hospitalist on duty at [facility] 24 hours a day by calling [phone] Pending Studies at Discharge: No Stand-Alone Forms: My [facility], Smoking Cessation Medications and DC Order Prescriptions: New doxycycline hyclate 100 mg Capsule 100 mg PO BID Qty: 5 RF: 0 prednisone 10 mg Tablet 10 mg PO UD Qty: 3 RF: 0 lidocaine 5 % Adhesive Patch,Medicated 1 patch transdermal QAM Qty: 15 RF: 0 Continued metoprolol tartrate 50 mg Tablet 50 mg PO BID RF: 0 prednisone 5 mg Tablet 5 mg PO QPM RF: 0 albuterol sulfate 2.5 mg /3 mL (0.083 %) Solution For Nebulization 2.5 mg INHALATION Q4H PRN (Reason: Wheezing) RF: 0 Dulera 200-5 mcg/actuation Hfa Aerosol Inhaler 2 puff INHALATION BID RF: 0 hydralazine 10 mg Tablet 10 mg PO TID RF: 0 Calcium + Vitamin D 600 mg calcium- 200 unit Tablet 1 tab PO DAILY RF: 0 fluticasone propionate 50 mcg/actuation [facility],Suspension 2 spray INTRANASAL DAILY PRN (Reason: Congestion) RF: 0 Ocuvite Tablet 1 tab PO DAILY RF: 0 Discharge Orders: Discharge Order (Routine); Ordered 05/16/21 Ordered By: Matias Batista Admission Data Admit Date/Time: 05/09/21 10:32 Attending Provider: Matias Batista Admit Provider: Christopher Osorio Primary Care Provider: Carlos Bowser Other Providers: Christopher Osorio ; Faisal Cherry ; Ravindra Hanson [facility] ; Kirstie Kaur
[2021-05-17] MEDS ORDERED: predniSONE 10 MG TABLET PO SCH (09:00)
== END 2021-05-16 17:45 | disposition home health service (06) | DRG 552 ==
LOC: ED 07:50 → SUATTDRO 10:32 → 3E 10:32 → 2S 05-10 23:59
DX: I71.9 Aortic aneurysm of unspecified site, without rupture; M81.0 Age-related osteoporosis without current pathological fracture; J44.1 Chronic obstructive pulmonary disease with (acute) exacerbation; N18.31 Chronic kidney disease, stage 3a; M48.061 Spinal stenosis, lumbar region without neurogenic claudication; R26.9 Unspecified abnormalities of gait and mobility; G25.0 Essential tremor; M47.816 Spondylosis without myelopathy or radiculopathy, lumbar region; Z88.0 Allergy status to penicillin; I12.9 Hypertensive chronic kidney disease with stage 1 through stage 4 chronic kidney disease, or unspecified chronic kidney disease; R09.02 Hypoxemia; N17.9 Acute kidney failure, unspecified; F17.210 Nicotine dependence, cigarettes, uncomplicated; Z66 Do not resuscitate